=== PATIENT | male | born 1950 | race Caucasian/White ===

== ENCOUNTER → 2016-04-23 | Outpatient (REF) | payer MEDICARE, MEDICAID ==
[~2016-04-23] MED LIST: *BLDWK6; ASPI81TA63; CEFTIN500 PO; DRYSOL TOPICAL; FLEXERIL10 PO; LIPI20TA; LIPITOR10 PO; LIPITOR20 PO; LIPITOR40 PO; LIPITOR80 PO; LODINE500 PO; MOTRIN400 PO; VYTORIN80 PO; XOPE1.252; ZETIA PO; [UNRECOGNIZED DRUG - CODE] PO
[2016-04-23 16:08] LABS: BASO % 0.5 % (0.0-1.0); EOS # 0.2 K/mm3 (0.0-0.50); EOS % 2.5 % (0.0-3.0); LARGE UNSTAINED CELL # 0.1 K/mm3 (0.0-0.4); LYMPH # 1.4 K/mm3 (1.5-4.5); LYMPH % 23.4 % (24.0-44.0); MEAN CORPUSCULAR HEMOGLOBIN 28.8 pg (27.0-33.0); MEAN CORPUSCULAR HGB CONC 32.9 g/dl (32.0-36.5); MEAN CORPUSCULAR VOLUME 87.6 fl (80.0-96.0); MONO # 0.5 K/mm3 (0.0-0.8); MONO % 7.9 % (0.0-5.0); NEUTROPHILS # 3.8 K/mm3 (1.8-7.7); NEUTROPHILS % 63.7 % (36.0-66.0); PLATELET COUNT, AUTOMATED 312 k/mm3 (150-450); RED CELL DISTRIBUTION WIDTH 12.8 % (11.5-14.5); WHITE BLOOD COUNT 5.9 K/mm3 (4.0-10.0)
[2016-04-23 16:11] LABS: ALBUMIN 3.8 GM/DL (3.2-5.2); ALBUMIN/GLOBULIN RATIO 1.19 (1.00-1.93); ALKALINE PHOSPHATASE 95 U/L (45-117); ALT/SGPT 23 U/L (12-78); ANION GAP 6 MEQ/L (8-16); AST/SGOT 11 U/L (15-37); BILIRUBIN,TOTAL 0.3 MG/DL (0.2-1.0); BLOOD UREA NITROGEN 14 MG/DL (7-18); CALCIUM LEVEL 9.2 MG/DL (8.8-10.2); CARBON DIOXIDE LEVEL 30 MEQ/L (21-32); CHLORIDE LEVEL 106 MEQ/L (98-107); CHOLESTEROL LEVEL 277 MG/DL (<200); CREATININE FOR GFR 0.96 MG/DL (0.70-1.30); GLOMERULAR FILTRATION RATE > 60.0 (>49); GLUCOSE, FASTING 89 MG/DL (80-110); POTASSIUM SERUM 4.8 MEQ/L (3.5-5.1); SODIUM LEVEL 142 MEQ/L (136-145); TRIGLYCERIDES LEVEL 129 MG/DL (<150)
== END ==
LOC: M SFHCPLAZ 11:18
PROVIDERS: ATTEND Family Medicine
DX: E78.5 Hyperlipidemia, unspecified (principal); M17.0 Bilateral primary osteoarthritis of knee; R73.01 Impaired fasting glucose
CPT/HCPCS: 36415; 80053; 80061; 82550; 83036; 85025; 86140; 90662; G0008; G0463

== ENCOUNTER → 2016-06-09 | Outpatient (REF) | payer MEDICARE, MEDICAID ==
[2016-06-09 11:31] LABS: ALBUMIN 3.6 GM/DL (3.2-5.2); ALBUMIN/GLOBULIN RATIO 1.2 (1.00-1.93); BILIRUBIN,DIRECT 0.1 MG/DL (0.0-0.2); BILIRUBIN,TOTAL 0.4 MG/DL (0.2-1.0); TOTAL PROTEIN 6.6 GM/DL (6.4-8.2)
== END ==
LOC: M SFHCPLAZ 09:36
PROVIDERS: ATTEND Physician Assistant Medical
DX: E78.5 Hyperlipidemia, unspecified (principal)

== ENCOUNTER → 2016-07-08 | Outpatient (CLI) | payer MEDICARE, MEDICAID ==
[2016-07-08 10:28] LABS: BLOOD UREA NITROGEN 22 MG/DL (7-18); CREATININE FOR GFR 0.92 MG/DL (0.70-1.30); GLOMERULAR FILTRATION RATE > 60.0 (>49)
== END ==
LOC: M LAB 09:30
PROVIDERS: ATTEND Surgery
DX: R10.31 Right lower quadrant pain (principal)

== ENCOUNTER → 2016-07-14 | Outpatient (CLI) | payer MEDICARE, MEDICAID ==
[~2016-07-14] MED LIST changes: +GASTROGRAFIN SOLUTION 30ML (Q9963) As Ordered ONE; +ISOVUE-370 76% 100ML VIAL (Q9967) As Ordered ONE
--- NOTE | 2016-07-14 17:28 | REP ---
CT PELVIS WITH CONTRAST: REASON: Groin pain. COMPARISON: 12/04/2015 CONTRAST UTILIZED 100 mL Isovue-370. The bowel loops and their mesenteries are within normal limits. There is no free fluid or free air. There is no pelvic mass or adenopathy. The inguinal regions are normal. The previously reported bilateral inguinal hernias are no longer present. Bone window technique throughout the exam shows the osseous structures to be stable and intact. Spinal degenerative changes are present and there is bilateral L5- spondylolysis status quo. IMPRESSION: CT findings are within normal limits as described above. Signed by Jacques Davis DO 07/19/2016 02:51 P
== END ==
LOC: M RAD 14:52
PROVIDERS: ATTEND Surgery
DX: R10.31 Right lower quadrant pain (principal)
CPT/HCPCS: 72193; Q9963; Q9967

== ENCOUNTER → 2016-09-10 | Outpatient (REF) | payer MEDICARE, MEDICAID ==
[~2016-09-10] MED LIST changes: -GASTROGRAFIN SOLUTION 30ML (Q9963) As Ordered ONE; -ISOVUE-370 76% 100ML VIAL (Q9967) As Ordered ONE
[2016-09-10 13:08] LABS: ALBUMIN 4.3 GM/DL (3.2-5.2); ALBUMIN/GLOBULIN RATIO 1.26 (1.00-1.93); ALKALINE PHOSPHATASE 93 U/L (45-117); ALT/SGPT 21 U/L (12-78); ANION GAP 9 MEQ/L (8-16); AST/SGOT 14 U/L (15-37); BILIRUBIN,TOTAL 0.5 MG/DL (0.2-1.0); BLOOD UREA NITROGEN 13 MG/DL (7-18); CALCIUM LEVEL 9.5 MG/DL (8.8-10.2); CARBON DIOXIDE LEVEL 25 MEQ/L (21-32); CHLORIDE LEVEL 103 MEQ/L (98-107); CREATININE FOR GFR 0.97 MG/DL (0.70-1.30); GLOMERULAR FILTRATION RATE > 60.0 (>49); GLUCOSE, FASTING 87 MG/DL (80-110); POTASSIUM SERUM 4.4 MEQ/L (3.5-5.1); SODIUM LEVEL 137 MEQ/L (136-145); TOTAL PROTEIN 7.7 GM/DL (6.4-8.2)
[2016-09-10 13:22] LABS: VITAMIN B12 LEVEL 509 PG/ML (247-911)
[2016-09-14 12:40] LABS: PRETREATED FOLATE FOR RBCFOL 9.6 NG/ML
== END ==
LOC: M SFHCPLAZ 10:15
PROVIDERS: ATTEND Family Medicine
DX: N18.2 Chronic kidney disease, stage 2 (mild) (principal); R73.01 Impaired fasting glucose; E53.8 Deficiency of other specified B group vitamins; Z12.5 Encounter for screening for malignant neoplasm of prostate
CPT/HCPCS: 80053; 82607; 82747; 83036; 90670; G0009; G0103; G0463

== ENCOUNTER → 2016-11-17 | Outpatient (CLI) | payer MEDICARE, MEDICAID ==
--- NOTE | 2016-11-17 09:32 | REP ---
Low-dose lung screening CT of the chest without IV contrast: Comparison is the chest CT with IV contrast dated 09/23/2008. There is a 6 mm right upper lobe lung nodule on image 50. Upon re measuring in this nodule on the prior study it also measure 6 mm previously and is stable and unchanged. Given the 8-year time frame from the prior study, this is a stable nodule, likely a granuloma. No additional evaluation is required. There are no other lung nodules or masses. There are no infiltrates or effusions. Impression: A category II low-dose screening lung CT. Recommend annual low-dose chest screening CT. Signed by Mihir Brown MD 11/17/2016 09:24 A
== END ==
LOC: M RAD 08:44
PROVIDERS: ATTEND Family Medicine
DX: Z12.2 Encounter for screening for malignant neoplasm of respiratory organs (principal); F17.210 Nicotine dependence, cigarettes, uncomplicated

== ENCOUNTER → 2017-01-14 | Outpatient (REF) | payer MEDICARE, MEDICAID ==
[2017-01-14 13:54] LABS: BASO % 0.5 % (0.0-1.0); EOS # 0.2 10^3/uL (0.0-0.50); EOS % 3.1 % (0.0-3.0); IMMATURE GRANULOCYTE % 0.3 % (0-0); LYMPH # 1.6 10^3/uL (1.5-4.5); LYMPH % 27.5 % (24.0-44.0); MEAN CORPUSCULAR HEMOGLOBIN 28.7 pg (27.0-33.0); MEAN CORPUSCULAR HGB CONC 32.4 g/dl (32.0-36.5); MEAN CORPUSCULAR VOLUME 88.4 fl (80.0-96.0); MONO # 0.5 10^3/uL (0.0-0.8); NEUTROPHILS # 3.5 10^3/uL (1.8-7.7); NEUTROPHILS % 59.6 % (36.0-66.0); PLATELET COUNT, AUTOMATED 338 10^3/uL (150-450); RED CELL DISTRIBUTION WIDTH 13.2 % (11.5-14.5); WHITE BLOOD COUNT 5.9 10^3/uL (4.0-10.0)
[2017-01-14 15:04] LABS: ALBUMIN 4.1 GM/DL (3.2-5.2); ALBUMIN/GLOBULIN RATIO 1.21 (1.00-1.93); ALKALINE PHOSPHATASE 93 U/L (45-117); ALT/SGPT 21 U/L (12-78); ANION GAP 5 MEQ/L (8-16); AST/SGOT 14 U/L (15-37); BILIRUBIN,TOTAL 0.5 MG/DL (0.2-1.0); BLOOD UREA NITROGEN 11 MG/DL (7-18); CALCIUM LEVEL 9.2 MG/DL (8.8-10.2); CARBON DIOXIDE LEVEL 31 MEQ/L (21-32); CHLORIDE LEVEL 104 MEQ/L (98-107); CHOLESTEROL LEVEL 275 MG/DL (<200); CREATININE FOR GFR 0.94 MG/DL (0.70-1.30); FREE T4 1.12 NG/DL (0.76-1.46); GLOMERULAR FILTRATION RATE > 60.0 (>49); GLUCOSE, FASTING 83 MG/DL (80-110); POTASSIUM SERUM 4.4 MEQ/L (3.5-5.1); SODIUM LEVEL 140 MEQ/L (136-145); TOTAL PROTEIN 7.5 GM/DL (6.4-8.2); TRIGLYCERIDES LEVEL 83 MG/DL (<150)
== END ==
LOC: M SFHCPLAZ 11:46
PROVIDERS: ATTEND Family Medicine
DX: E78.5 Hyperlipidemia, unspecified (principal); K21.9 Gastro-esophageal reflux disease without esophagitis; E53.8 Deficiency of other specified B group vitamins; Z23 Encounter for immunization; R73.01 Impaired fasting glucose; F17.200 Nicotine dependence, unspecified, uncomplicated; K40.90 Unilateral inguinal hernia, without obstruction or gangrene, not specified as recurrent; M17.0 Bilateral primary osteoarthritis of knee; J32.9 Chronic sinusitis, unspecified; M18.2 Bilateral post-traumatic osteoarthritis of first carpometacarpal joints; Z79.82 Long term (current) use of aspirin; Z79.899 Other long term (current) drug therapy
CPT/HCPCS: 80053; 80061; 82306; 82550; 83970; 84439; 84443; 85025; 86140; 90471; 90662; G0463

== ENCOUNTER → 2017-05-19 | Outpatient (REF) | payer MEDICARE, MEDICAID ==
[2017-05-19 13:12] LABS: ALBUMIN 3.8 GM/DL (3.2-5.2); ALBUMIN/GLOBULIN RATIO 1.27 (1.00-1.93); ALKALINE PHOSPHATASE 85 U/L (45-117); ALT/SGPT 20 U/L (12-78); ANION GAP 7 MEQ/L (8-16); AST/SGOT 17 U/L (7-37); BILIRUBIN,TOTAL 0.4 MG/DL (0.2-1.0); BLOOD UREA NITROGEN 16 MG/DL (7-18); C REACTIVE PROTEIN QUANTITATIV < 0.30 MG/DL (0.00-0.30); CALCIUM LEVEL 8.9 MG/DL (8.8-10.2); CARBON DIOXIDE LEVEL 26 MEQ/L (21-32); CHLORIDE LEVEL 107 MEQ/L (98-107); CHOLESTEROL LEVEL 202 MG/DL (<200); CHOLESTEROL RISK RATIO 3.811 (<5); CREATININE FOR GFR 1.08 MG/DL (0.70-1.30); GLOMERULAR FILTRATION RATE > 60.0 (>49); GLUCOSE, FASTING 109 MG/DL (70-100); HDL CHOLESTEROL 53 MG/DL (>40); LDL CHOLESTEROL 120.4 MG/DL (<100); MAGNESIUM LEVEL 2.1 MG/DL (1.8-2.4); NON-HDL-C 149 MG/DL; POTASSIUM SERUM 4.4 MEQ/L (3.5-5.1); PSA SCREENING 0.74 NG/ML (< 4.0); SODIUM LEVEL 140 MEQ/L (136-145); TOTAL PROTEIN 6.8 GM/DL (6.4-8.2); TRIGLYCERIDES LEVEL 143 MG/DL (<150)
== END ==
LOC: M SFHCPLAZ 08:49
DX: N18.2 Chronic kidney disease, stage 2 (mild) (principal); E78.5 Hyperlipidemia, unspecified; Z12.5 Encounter for screening for malignant neoplasm of prostate
CPT/HCPCS: 83735

== ENCOUNTER → 2017-06-29 | Outpatient (CLI) | payer MEDICARE, MEDICAID ==
[2017-06-29 13:56] LABS: ANION GAP 6 MEQ/L (8-16); AST/SGOT 12 U/L (7-37); BLOOD UREA NITROGEN 11 MG/DL (7-18); CALCIUM LEVEL 8.8 MG/DL (8.8-10.2); CARBON DIOXIDE LEVEL 26 MEQ/L (21-32); CHLORIDE LEVEL 108 MEQ/L (98-107); CREATININE FOR GFR 0.98 MG/DL (0.70-1.30); GLOMERULAR FILTRATION RATE > 60.0 (>49); GLUCOSE, FASTING 97 MG/DL (70-100); POTASSIUM SERUM 4.1 MEQ/L (3.5-5.1); SODIUM LEVEL 140 MEQ/L (136-145)
[2017-06-29 13:57] LABS: ALBUMIN 3.8 GM/DL (3.2-5.2); ALBUMIN/GLOBULIN RATIO 1.19 (1.00-1.93); ALKALINE PHOSPHATASE 91 U/L (45-117); ALT/SGPT 18 U/L (12-78); BILIRUBIN,TOTAL 0.5 MG/DL (0.2-1.0); CHOLESTEROL LEVEL 267 MG/DL (<200); CHOLESTEROL RISK RATIO 4.377 (<5); HDL CHOLESTEROL 61 MG/DL (>40); LDL CHOLESTEROL 184.6 MG/DL (<100); MAGNESIUM LEVEL 2.1 MG/DL (1.8-2.4); NON-HDL-C 206 MG/DL; PSA SCREENING 0.75 NG/ML (< 4.0); TRIGLYCERIDES LEVEL 107 MG/DL (<150)
== END ==
LOC: M LAB 12:59
DX: N18.2 Chronic kidney disease, stage 2 (mild) (principal); E78.5 Hyperlipidemia, unspecified; Z12.5 Encounter for screening for malignant neoplasm of prostate
CPT/HCPCS: 83735

== ENCOUNTER → 2017-10-18 | Outpatient (REF) | payer MEDICARE, MEDICAID ==
[2017-10-18 10:43] LABS: BASO % 0.6 % (0.0-1.0); EOS # 0.3 10^3/uL (0.0-0.50); HEMATOCRIT 39.8 % (42.0-52.0); IMMATURE GRANULOCYTE % 0.5 % (0-3.0); LYMPH # 1.5 10^3/uL (1.5-4.5); LYMPH % 24.8 % (24.0-44.0); MEAN CORPUSCULAR HEMOGLOBIN 28.4 pg (27.0-33.0); MEAN CORPUSCULAR HGB CONC 32.7 g/dl (32.0-36.5); MEAN CORPUSCULAR VOLUME 87.1 fl (80.0-96.0); MONO # 0.7 10^3/uL (0.0-0.8); MONO % 11.3 % (0.0-5.0); NEUTROPHILS # 3.6 10^3/uL (1.8-7.7); NEUTROPHILS % 57.8 % (36.0-66.0); PLATELET COUNT, AUTOMATED 274 10^3/uL (150-450); RED BLOOD COUNT 4.57 10^6/uL (4.30-6.10); RED CELL DISTRIBUTION WIDTH 12.9 % (11.5-14.5); WHITE BLOOD COUNT 6.2 10^3/uL (4.0-10.0)
[2017-10-18 10:51] LABS: APPEARANCE, URINE CLOUDY (CLEAR); BACTERIA, URINE AUTO NEGATIVE (NEGATIVE); BILIRUBIN, URINE AUTO 1+ (NEGATIVE); BLOOD, URINE BLOOD NEGATIVE (NEGATIVE); CALCIUM OXALATE CRYSTALS MODERATE; COLOR, URINE YELLOW (YELLOW); GLUCOSE, URINE (UA) AUTO NEGATIVE (NEGATIVE); KETONE, URINE AUTO NEGATIVE (NEGATIVE); LEUKOCYTE ESTERASE, URINE AUTO NEGATIVE (NEGATIVE); MUCUS, URINE MODERATE (NEGATIVE); NITRITE, URINE AUTO NEGATIVE (NEGATIVE); PROTEIN, URINE AUTO NEGATIVE (NEGATIVE); RBC, URINE AUTO 2 /HPF (0-3); SQUAMOUS EPITHELIAL CELL UR AU 1 /HPF (0-6); WBC, URINE AUTO 2 /HPF (0-3)
[2017-10-18 10:54] LABS: HEMATOCRIT 39.8 % (42.0-52.0)
[2017-10-18 11:17] LABS: ALBUMIN 3.6 GM/DL (3.2-5.2); ALKALINE PHOSPHATASE 83 U/L (45-117); ALT/SGPT 23 U/L (12-78); ANION GAP 7 MEQ/L (8-16); AST/SGOT 16 U/L (7-37); BILIRUBIN,TOTAL 0.3 MG/DL (0.2-1.0); BLOOD UREA NITROGEN 18 MG/DL (7-18); CALCIUM LEVEL 8.6 MG/DL (8.8-10.2); CARBON DIOXIDE LEVEL 27 MEQ/L (21-32); CHLORIDE LEVEL 107 MEQ/L (98-107); CREATININE FOR GFR 0.94 MG/DL (0.70-1.30); GLOMERULAR FILTRATION RATE > 60.0 (>49); GLUCOSE, FASTING 92 MG/DL (70-100); POTASSIUM SERUM 4.5 MEQ/L (3.5-5.1); SODIUM LEVEL 141 MEQ/L (136-145); TOTAL PROTEIN 6.6 GM/DL (6.4-8.2)
[2017-10-18 11:23] LABS: VITAMIN B12 LEVEL 371 PG/ML (247-911)
[2017-10-18 11:31] LABS: ESTIMATED AVERAGE GLUCOSE 120 MG/DL (60-110); HEMOGLOBIN A1c 5.8 %
[2017-10-18 11:32] LABS: MALB URINE SIEMENS 21.9 MG/L; MAU/CREAT RATIO 5.3 MCG/MG (0.0-30.0)
[2017-10-18 13:10] LABS: PRETREATED FOLATE FOR RBCFOL 14.4 NG/ML; RBC FOLATE 759.8 NG/ML (280-791)
== END ==
LOC: M SFHCPLAZ 08:31
DX: N18.2 Chronic kidney disease, stage 2 (mild) (principal); E53.8 Deficiency of other specified B group vitamins
CPT/HCPCS: 82607

== ENCOUNTER 2017-11-21 06:51 | Emergency (ER) | payer MEDICARE, MEDICAID ==
[2017-11-21] MEDS: METHOCARBAMOL 500 MG TAB PO (07:34)
== END 2017-11-21 07:43 | disposition home or self-care (01) ==
LOC: M ED 06:51
DX: S29.012A Strain of muscle and tendon of back wall of thorax, initial encounter (principal); S16.1XXA Strain of muscle, fascia and tendon at neck level, initial encounter; J44.9 Chronic obstructive pulmonary disease, unspecified; J45.909 Unspecified asthma, uncomplicated; E78.70 Disorder of bile acid and cholesterol metabolism, unspecified; F17.210 Nicotine dependence, cigarettes, uncomplicated; Z79.82 Long term (current) use of aspirin; Z79.899 Other long term (current) drug therapy
CPT/HCPCS: 99283

== ENCOUNTER → 2017-11-23 | Outpatient (CLI) | payer MEDICARE, MEDICAID | LOC: M RAD 10:48 | DX: M50.321 Other cervical disc degeneration at C4-C5 level (principal); M50.322 Other cervical disc degeneration at C5-C6 level; M47.812 Spondylosis without myelopathy or radiculopathy, cervical region | CPT/HCPCS: 72052 ==

== ENCOUNTER → 2018-02-17 | Outpatient (CLI) | payer MEDICARE, MEDICAID | LOC: M RAD 10:54 | DX: M47.22 Other spondylosis with radiculopathy, cervical region (principal); M50.21 Other cervical disc displacement, high cervical region; M50.221 Other cervical disc displacement at C4-C5 level; M50.222 Other cervical disc displacement at C5-C6 level; M50.223 Other cervical disc displacement at C6-C7 level; M50.23 Other cervical disc displacement, cervicothoracic region | CPT/HCPCS: 72141 ==

== ENCOUNTER 2018-08-25 07:46 | Day surgery (SDC) | payer MEDICARE, MEDICAID ==
[~2018-08-25] VITALS: Ht 170.2 cm; Wt 87.9 kg
[~2018-08-25 07:46] MED LIST changes: +ASPI81TA85 PO; +B COTAB3 PO; +CRES40TA PO; +ESOM1CAP5; +EZET10TA; +HYDR-3715 PO; +LIDOCAINE 1% MDV 20ML VIAL SQ PRN; +LOSA25TA14; +LR 1,000 ML IV ONE; +MELO15TA28; +METO10TA2; +METO10TA2 PO; +NEXI40CA PO; +ROBA500T PO; +ROSU40TA3; +TIZA2CAP PO; +ceFAZolin SOD 1 GM in D5W MINI-BAG PLUS 50 ML IV ONE
[2018-08-25 08:10] LABS: HEMATOCRIT 41.1 % (42.0-52.0); HEMOGLOBIN 13.3 g/dl (13.5-17.5); MEAN CORPUSCULAR HEMOGLOBIN 27.9 pg (27.0-33.0); MEAN CORPUSCULAR HGB CONC 32.4 g/dl (32.0-36.5); MEAN CORPUSCULAR VOLUME 86.2 fl (80.0-96.0); PLATELET COUNT, AUTOMATED 272 10^3/uL (150-450); RED BLOOD COUNT 4.77 10^6/uL (4.30-6.10); WHITE BLOOD COUNT 6.8 10^3/uL (4.0-10.0)
[2018-08-25] MEDS ORDERED: BUPIVACAINE/EPIN 0.25% 30 ML VIAL As Ordered ONE (09:59)
[2018-08-25] MEDS ORDERED: ONDANSETRON 4MG/2ML VIAL (J2405) As Ordered ONE (10:18)
[2018-08-25] MEDS ORDERED: PROPOFOL 200 MG/20 ML VIAL As Ordered ONE (10:18)
[2018-08-25] MEDS ORDERED: fentaNYL 250 MCG/5 ML INJECTION (J3010) As Ordered ONE (10:18)
[2018-08-25] MEDS ORDERED: LIDOCAINE 2% JELLY 6 ML SYRINGE As Ordered ONE (10:18)
[2018-08-25] MEDS ORDERED: ROCURONIUM BROMIDE 50 MG/5 ML VIAL As Ordered ONE ×2 (10:18→11:08)
[2018-08-25] MEDS ORDERED: MIDAZOLAM INJ 2 MG/2 ML VIAL (J2250) As Ordered ONE (10:18)
[2018-08-25] MEDS ORDERED: SUGAMMADEX SODIUM 500 MG/5 ML VIAL (BRIDION) As Ordered ONE (10:18)
[2018-08-25] MEDS ORDERED: LIDOCAINE 2% INJ 100 MG/5 ML SDV (FOR ANES.) As Ordered ONE (10:18)
[2018-08-25] MEDS ORDERED: METOCLOPRAMIDE INJ 10MG/2ML VIAL (J2765) As Ordered ONE (10:18)
[2018-08-25] MEDS ORDERED: dexameTHASONE 4 MG/ML 1ML VIAL (J1100) As Ordered ONE (10:18)
[2018-08-25] MEDS ORDERED: DESFLURANE 240 ML INHALANT As Ordered ONE (10:52)
[2018-08-25] MEDS ORDERED: ePHEDrine SULFATE 25 MG/5 ML(5MG/ML) SYRINGE As Ordered ONE (10:53)
[2018-08-25] MEDS ORDERED: ACETAMINOPHEN 1000MG 100ML IV BTL (OFIRMEV) (J0131 PER 10MG) As Ordered ONE (11:28)
[2018-08-25] MEDS ORDERED: KETOROLAC 60 MG/2 ML VIAL (J1885) As Ordered ONE (11:31)
--- NOTE | 2018-08-25 12:10 | RO ---
DATE OF PROCEDURE: 08/25/2018 PREOPERATIVE DIAGNOSIS: Left inguinal hernia. POSTOPERATIVE DIAGNOSIS: Left inguinal hernia (indirect). PROCEDURE: Robotic-assisted left inguinal hernia repair with ProGrip mesh. SURGEON: Lui Perry MD FIRE INVESTIGATION LIEUTENANT: ANESTHESIA: General endotracheal anesthesia ESTIMATED BLOOD LOSS: Minimal. FLUIDS: Crystalloid. BRIEF PROCEDURE SUMMARY: The patient was brought to the operating room, was given general anesthesia. After adequate anesthesia and preoperative antibiotics were given, the patient was prepped and draped in the usual sterile fashion. Next, a supraumbilical incision was made with skin knife. Blunt dissection was carried down to fascia. Veress needle placed into the abdominal cavity insufflated to 15 mm of pressure and a dilating 8 mm trocar was placed. Under direct visualization, two lateral 8 mm trocars were placed and the patient was placed in steep Trendelenburg. The robot was docked at this time, and the peritoneum was then taken down with monopolar cut scissors using blunt dissection. Initially to get into the plane, the patient had some adhesions from the previous TEP hernia repair on the right-hand side and these preperitoneal thickened adhesions were taken down with sharp dissection as well as electrocautery. Eventually, this was mobilized quite nicely and the lateral border of Vinnie's pubis was seen and then dissection was continued laterally. The peritoneum was taken down in this area as well as with blunt dissection, taken off the cord structures, taken off vas to where the vessels could be seen nicely diving deep. The ProGrip mesh was cut to the appropriate size and brought into the preperitoneal space, pressed into position. There was a little bit of a redundancy to it and thus, a small slit was made to have some overlapping mesh, but otherwise, peritoneum was closed over this in a running manner with V-Loc suture. All trocars were removed under direct visualization. #4-0 Vicryl was used to close all incisions. Steri-Strips and dry sterile dressing was applied. The patient was awakened, extubated, brought to recovery room awake, alert, hemodynamically stable. Sponge and needle counts correct times two.
[2018-08-25] MEDS ORDERED: LR 1,000 ML IV SCH ×2 (12:15)
[2018-08-25] MEDS ORDERED: fentaNYL 100 MCG/2 ML INJECTION (J3010) IV PRN (12:15)
[2018-08-25] MEDS ORDERED: NORCO, ANEXSIA 5/325MG TABLET (HYDROcodone/ACETAMINOPHEN) PO PRN (12:15)
[2018-08-25] MEDS ORDERED: ONDANSETRON 4MG/2ML VIAL (J2405) IV PRN ×2 (12:15)
[2018-08-25] MEDS: PERCOCET 5MG/325MG TAB PO PRN ×2 (12:20→12:25)
[2018-08-25 13:17] VITALS: BP 157/78
--- NOTE | 2018-08-25 18:44 | ECGEPIP ---
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
[2018-08-25] MEDS ORDERED: IBUPROFEN 600 MG TAB PO SCH (21:00)
== END 2018-08-25 13:28 | disposition home or self-care (01) ==
LOC: M SDC 07:46
PROVIDERS: ATTEND Surgery
DX: K40.90 Unilateral inguinal hernia, without obstruction or gangrene, not specified as recurrent (principal); I10 Essential (primary) hypertension; J44.9 Chronic obstructive pulmonary disease, unspecified; F17.210 Nicotine dependence, cigarettes, uncomplicated; E78.5 Hyperlipidemia, unspecified
CPT/HCPCS: 36415; 49650; 85027; 93005; C1781; J0131; J0690; J1100; J1885; J2250; J2405; J2765; J3010

== ENCOUNTER → 2019-04-26 | Outpatient (REF) | payer MEDICARE, MEDICAID ==
[~2019-04-26] MED LIST changes: -EZET10TA; +EZET10TA21; -LIDOCAINE 1% MDV 20ML VIAL SQ PRN; -LR 1,000 ML IV ONE; -ROSU40TA3; +ROSU40TA4; -ceFAZolin SOD 1 GM in D5W MINI-BAG PLUS 50 ML IV ONE
[2019-04-26 13:29] LABS: BASO # 0.1 10^3/uL (0.0-0.2); BASO % 0.7 % (0.0-1.0); EOS # 0.3 10^3/uL (0.0-0.5); HEMATOCRIT 47.5 % (42.0-52.0); HEMOGLOBIN 14.6 g/dl (13.5-17.5); LYMPH # 1.6 10^3/uL (1.5-5.0); LYMPH % 22.9 % (24.0-44.0); MEAN CORPUSCULAR HEMOGLOBIN 28.2 pg (27.0-33.0); MEAN CORPUSCULAR HGB CONC 30.7 g/dl (32.0-36.5); MEAN CORPUSCULAR VOLUME 91.7 fl (80.0-96.0); MONO # 0.7 10^3/uL (0.0-0.8); MONO % 10.8 % (0.0-5.0); NEUTROPHILS # 4.1 10^3/uL (1.5-8.5); PLATELET COUNT, AUTOMATED 321 10^3/uL (150-450); RED BLOOD COUNT 5.18 10^6/uL (4.30-6.10); WHITE BLOOD COUNT 6.8 10^3/uL (4.0-10.0)
[2019-04-26 14:09] LABS: ALBUMIN 4.2 GM/DL (3.2-5.2); ALT/SGPT 17 U/L (12-78); BILIRUBIN,TOTAL 0.5 MG/DL (0.2-1.0); BLOOD UREA NITROGEN 13 MG/DL (7-18); CALCIUM LEVEL 9.7 MG/DL (8.8-10.2); CARBON DIOXIDE LEVEL 28 MEQ/L (21-32); CHLORIDE LEVEL 104 MEQ/L (98-107); CHOLESTEROL LEVEL 305 MG/DL (<200); CHOLESTEROL RISK RATIO 5.258 (<5); CREATININE FOR GFR 1.13 MG/DL (0.70-1.30); FREE T4 1.15 NG/DL (0.76-1.46); GLOMERULAR FILTRATION RATE > 60.0 (>42); GLUCOSE, FASTING 85 MG/DL (70-100); HDL CHOLESTEROL 58 MG/DL (>40); LDL CHOLESTEROL 215 MG/DL (<100); NON-HDL-C 247 MG/DL; POTASSIUM SERUM 4.9 MEQ/L (3.5-5.1); PTH INTACT 62.8 PG/ML (18.5-88.0); SODIUM LEVEL 139 MEQ/L (136-145); TOTAL 25(OH) VITAMIN D 16.7 NG/ML (30.0-100.0); TOTAL PROTEIN 7.8 GM/DL (6.4-8.2); TRIGLYCERIDES LEVEL 159 MG/DL (<150); VITAMIN B12 LEVEL 357 PG/ML (247-911)
[2019-04-29 14:07] LABS: D001-IgE D pteronyssinus <0.10 kU/L (Class 0); E001-IgE Cat Epith/Dander < 0.10 kU/L (Class 0); E005-IgE Dog Dander < 0.10 kU/L (Class 0); G002-IgE Bermuda Grass < 0.10 kU/L (Class 0); G008-IgE Kentucky Bluegrass < 0.10 kU/L (Class 0); M001-IgE Penicillium chrysogen < 0.10 kU/L (Class 0); M002 IgE Cladosporium herbaru < 0.10 kU/L (Class 0); M003 IgE Aspergillus fumigatu < 0.10 kU/L (Class 0); M006-IgE Alternaria alternata < 0.10 kU/L (Class 0); T001-IgE Maple/Box Elder < 0.10 kU/L (Class 0); T003-IgE Common Silver Birch < 0.10 kU/L (Class 0); T006-IgE Cedar, Mountain < 0.10 kU/L (Class 0); T007-IgE Oak, White < 0.10 kU/L (Class 0); T008-IgE Elm, American < 0.10 kU/L (Class 0); T015-IgE Ash, White < 0.10 kU/L (Class 0); T041-IgE Hickory, White < 0.10 kU/L (Class 0); T070-IgE White Mulberry < 0.10 kU/L (Class 0); W001-IgE Ragweed, Short < 0.10 kU/L (Class 0); W009-IgE Plantain, English < 0.10 kU/L (Class 0); W014-IgE Pigweed, Rough < 0.10 kU/L (Class 0); W018-IgE Sheep Sorrel < 0.10 kU/L (Class 0)
== END ==
LOC: M SFHCPLAZ 11:51
PROVIDERS: ATTEND Family Medicine
DX: E53.8 Deficiency of other specified B group vitamins (principal); N18.2 Chronic kidney disease, stage 2 (mild); E78.5 Hyperlipidemia, unspecified; J30.89 Other allergic rhinitis; Z12.5 Encounter for screening for malignant neoplasm of prostate; Z79.899 Other long term (current) drug therapy
CPT/HCPCS: 36415; 80053; 80061; 82306; 82607; 83970; 84439; 84443; 85025; 85046; 86003; G0103; G0463

== ENCOUNTER → 2019-05-10 | Outpatient (CLI) | payer MEDICARE, MEDICAID ==
--- NOTE | 2019-05-10 08:13 | REP ---
Low-dose lung screening CT of the chest: The study is performed without IV contrast. The images are presented at lung windowing only. Comparisons are chest CTs dated 11/17/2016 and 08/06/2005. There is a 6 ml nodule in the right upper lobe on image 43, unchanged from both prior studies. There are no other lung nodules or masses. There are no infiltrates or pleural effusions. Impression: Stable right upper lobe lung nodule as described. Category II low-dose lung screening CT of the chest. The probability of malignancy is less than 1%. Depending on risk factors consider annual follow-up low-dose lung screening CT of the chest. Electronically Signed by Mihir Brown MD 05/10/2019 08:05 A
== END ==
LOC: M RAD 07:29
PROVIDERS: ATTEND Family Medicine
DX: Z12.2 Encounter for screening for malignant neoplasm of respiratory organs (principal); R91.1 Solitary pulmonary nodule; Z87.891 Personal history of nicotine dependence

== ENCOUNTER → 2019-05-11 | Outpatient (CLI) | payer MEDICARE, MEDICAID ==
--- NOTE | 2019-05-11 13:43 | REP ---
RIGHT WRIST, FOUR VIEWS: Four views of the right wrist performed. No acute fracture or dislocation is seen. There is mild diffuse chondrocalcinosis at the radiocarpal joint and proximal intercarpal joints. I see no other significant finding. IMPRESSION: Mild chondrocalcinosis. No other significant finding. Electronically Signed by Mihir Jensen MD 05/11/2019 03:33 P
== END ==
LOC: M RAD 11:33
PROVIDERS: ATTEND Physician Assistant Medical
DX: M11.231 Other chondrocalcinosis, right wrist (principal)

== ENCOUNTER → 2019-05-21 | Outpatient (REF) | payer MEDICARE, MEDICAID ==
[2019-05-21 16:04] LABS: ALBUMIN 4.3 GM/DL (3.2-5.2); ALT/SGPT 39 U/L (12-78); BILIRUBIN,TOTAL 0.4 MG/DL (0.2-1.0); BLOOD UREA NITROGEN 8 MG/DL (7-18); CALCIUM LEVEL 9.3 MG/DL (8.8-10.2); CARBON DIOXIDE LEVEL 30 MEQ/L (21-32); CHLORIDE LEVEL 103 MEQ/L (98-107); CHOLESTEROL LEVEL 166 MG/DL (<200); CHOLESTEROL RISK RATIO 2.634 (<5); CPK CREATINE PHOSPHOKINASE 178 U/L (39-308); GLOMERULAR FILTRATION RATE > 60.0 (>42); GLUCOSE, FASTING 83 MG/DL (70-100); HDL CHOLESTEROL 63 MG/DL (>40); LDL CHOLESTEROL 79 MG/DL (<100); NON-HDL-C 103 MG/DL; POTASSIUM SERUM 4.3 MEQ/L (3.5-5.1); SODIUM LEVEL 140 MEQ/L (136-145); TOTAL PROTEIN 7.4 GM/DL (6.4-8.2); TRIGLYCERIDES LEVEL 119 MG/DL (<150)
[2019-05-21 16:12] LABS: PTH INTACT 89.1 PG/ML (18.5-88.0); TOTAL 25(OH) VITAMIN D 14.8 NG/ML (30.0-100.0); VITAMIN B12 LEVEL 724 PG/ML (247-911)
[2019-05-21 17:20] LABS: HEMOGLOBIN A1c 6.2 %
[2019-05-22 11:30] LABS: ALBUMIN 4.48 GM/DL (3.29-5.55); ALBUMIN % 60.5 % (55.8-66.1); ALPHA-1-GLOBULIN % 5.2 % (2.9-4.9); ALPHA-1-GLOBULINS 0.38 GM/DL (0.17-0.41); ALPHA-2-GLOBULINS 0.84 GM/DL (0.42-0.99); ALPHA-2-GLOBULINS % 11.4 % (7.1-11.8); BETA-1-GLOBULINS 0.45 GM/DL (0.28-0.60); BETA-1-GLOBULINS % 6.1 % (4.7-7.2); BETA-2-GLOBULINS 0.36 GM/DL (0.19-0.55); BETA-2-GLOBULINS % 4.9 % (3.2-6.5); GAMMA GLOBULIN % 11.9 % (11.1-18.8); GAMMA GLOBULINS 0.88 GM/DL (0.65-1.58)
== END ==
LOC: M SFHCPLAZ 12:37
PROVIDERS: ATTEND Family Medicine
DX: E78.5 Hyperlipidemia, unspecified (principal); E55.9 Vitamin D deficiency, unspecified; R73.01 Impaired fasting glucose; E53.8 Deficiency of other specified B group vitamins
CPT/HCPCS: 20610; 36415; 80053; 80061; 82306; 82550; 82607; 83036; 83525; 83970; 84165; G0463; J3301

== ENCOUNTER → 2019-05-28 | Outpatient (CLI) | payer MEDICARE, MEDICAID ==
--- NOTE | 2019-05-28 14:15 | PFTRPT ---
Site: [facility], [address] [place], [address] ID: [id number] Name: ERICK MONTELONGO Visit Date: 05/28/2019 Second ID: [id number] Referring Doctor: MD Goldberg Ryan Reviewing Doctor: Tho Peters MD Behavioral Technician: Cintia SANDY RRT Age: 69 : 1950 Sex: Male Race: Height: 66.00 Inches Weight: 197.00 Lbs BSA: 1.99 Order IDs: [id number] Requested Test(s): <RESP-PFT.PFT B/A> Diagnosis: J44.9 test appear to be valid, although the ATS standard for "end of test" was not met. Pt was given four puffs of albuterol for postbronchodilator. Review Status: Not Reviewed Pre-Bronch Post-Bronch Pred Actual %Pred Actual %Chng SPIROMETRY FVC (L) 3.77 3.17 84 3.25 2 FEV1 (L) 2.76 2.06 74 2.18 5 FEV1/FVC (%) 74 65 87 67 2 FEF 25% (L/sec) 6.94 3.13 45 3.74 19 FEF 50% (L/sec) 4.40 1.56 35 1.76 12 FEF 75% (L/sec) 1.15 0.47 40 0.58 22 FEF 25-75% (L/sec) 2.10 1.15 54 1.36 18 FEF Max (L/sec) 7.47 5.25 70 4.76 -9 FIVC (L) 2.67 2.78 4 FIF 50% (L/sec) 4.46 3.27 73 4.45 35 FIF Max (L/sec) 3.31 4.55 37 MVV (L/min) 114 70 61 Expiratory Time (sec) 7.49 7.59 1 Back Extrap Vol (L) 0.06 0.17 175 Time To FEFmax (sec) 0.076 0.113 49 LUNG VOLUMES SVC (L) 3.99 3.29 82 IC (L) 2.97 2.17 73 ERV (L) 1.02 1.12 110 TGV (L) 3.25 4.98 153 RV (Pleth) (L) 2.23 3.86 173 TLC (Pleth) (L) 6.22 7.15 115 RV/TLC (Pleth) (%) 36 54 149 DIFFUSION DLCOunc (ml/min/mmHg) 24.43 22.09 90 DLCOcor (ml/min/mmHg) 24.43 23.21 95 DL/VA (ml/min/mmHg/L) 3.93 4.64 117 VA (L) 6.22 5.01 80 BHT (sec) 10.12 IVC (L) 3.12 TLC (SB) (L) 5.16 AIRWAYS RESISTANCE Raw (cmH2O/L/s) 1.45 1.39 96 Gaw (L/s/cmH2O) 1.03 0.75 73 sRaw (cmH2O*s) 4.76 7.76 162 sGaw (1/cmH2O*s) 0.20 0.13 66 BLOOD GASES Hgb (gm/dL) 13.0
== END ==
LOC: M CARPUL 12:53
PROVIDERS: ATTEND Family Medicine
DX: J44.9 Chronic obstructive pulmonary disease, unspecified (principal)

== ENCOUNTER → 2019-11-19 | Outpatient (REF) | payer MEDICARE, MEDICAID ==
[~2019-11-19] MED LIST changes: -ASPI81TA85 PO; +ASPI81TA86 PO
[2019-12-21 11:43] LABS: BASO % 0.4 % (0.0-1.0); EOS # 0.2 10^3/uL (0.0-0.5); EOS % 3.1 % (0.0-3.0); HEMATOCRIT 47.9 % (42.0-52.0); HEMOGLOBIN 15.1 g/dl (13.5-17.5); LYMPH # 1.9 10^3/uL (1.5-5.0); LYMPH % 27.5 % (24.0-44.0); MEAN CORPUSCULAR HEMOGLOBIN 28.7 pg (27.0-33.0); MEAN CORPUSCULAR HGB CONC 31.5 g/dl (32.0-36.5); MEAN CORPUSCULAR VOLUME 90.9 fl (80.0-96.0); MONO # 0.8 10^3/uL (0.0-0.8); MONO % 12.2 % (0.0-5.0); NEUTROPHILS # 3.8 10^3/uL (1.5-8.5); NEUTROPHILS % 56.2 % (36.0-66.0); PLATELET COUNT, AUTOMATED 307 10^3/uL (150-450); RED BLOOD COUNT 5.27 10^6/uL (4.30-6.10); WHITE BLOOD COUNT 6.8 10^3/uL (4.0-10.0)
[2020-01-02 16:42] LABS: ALBUMIN 4.2 GM/DL (3.2-5.2); ALT/SGPT 17 U/L (12-78); BILIRUBIN,TOTAL 0.2 MG/DL (0.2-1.0); BLOOD UREA NITROGEN 17 MG/DL (7-18); CALCIUM LEVEL 9.5 MG/DL (8.8-10.2); CARBON DIOXIDE LEVEL 29 MEQ/L (21-32); CHLORIDE LEVEL 105 MEQ/L (98-107); CHOLESTEROL LEVEL 240 MG/DL (<200); CHOLESTEROL RISK RATIO 4.067 (<5); CREATININE FOR GFR 1.13 MG/DL (0.70-1.30); GLOMERULAR FILTRATION RATE > 60.0 (>42); GLUCOSE, FASTING 88 MG/DL (70-100); HDL CHOLESTEROL 59 MG/DL (>40); LDL CHOLESTEROL 158 MG/DL (<100); NON-HDL-C 181 MG/DL; POTASSIUM SERUM 5.8 MEQ/L (3.5-5.1); SODIUM LEVEL 138 MEQ/L (136-145); THYROID STIMULATING HORMONE 0.829 uIU/ML (0.358-3.740); TOTAL PROTEIN 7.5 GM/DL (6.4-8.2); TRIGLYCERIDES LEVEL 113 MG/DL (<150)
[2020-01-02 16:43] LABS: HEMOGLOBIN A1c 5.7 %
== END ==
LOC: M SFHCPLAZ 13:13
PROVIDERS: ATTEND Physician Assistant Medical
DX: J44.9 Chronic obstructive pulmonary disease, unspecified (principal); I10 Essential (primary) hypertension; E78.00 Pure hypercholesterolemia, unspecified; Z79.899 Other long term (current) drug therapy

== ENCOUNTER → 2020-04-07 | Outpatient (REF) | payer MEDICARE, MEDICAID ==
[2020-04-07 17:32] LABS: ALBUMIN 3.9 GM/DL (3.2-5.2); ALT/SGPT 16 U/L (12-78); BILIRUBIN,TOTAL 0.4 MG/DL (0.2-1.0); BLOOD UREA NITROGEN 12 MG/DL (7-18); C REACTIVE PROTEIN QUANTITATIV 0.52 MG/DL (0.00-0.30); CALCIUM LEVEL 9.6 MG/DL (8.8-10.2); CARBON DIOXIDE LEVEL 31 MEQ/L (21-32); CHLORIDE LEVEL 104 MEQ/L (98-107); CHOLESTEROL LEVEL 256 MG/DL (<200); CHOLESTEROL RISK RATIO 4.413 (<5); GLOMERULAR FILTRATION RATE > 60.0 (>42); GLUCOSE, FASTING 76 MG/DL (70-100); HDL CHOLESTEROL 58 MG/DL (>40); LDL CHOLESTEROL 172 MG/DL (<100); NON-HDL-C 198 MG/DL; POTASSIUM SERUM 4.8 MEQ/L (3.5-5.1); SODIUM LEVEL 137 MEQ/L (136-145); TOTAL PROTEIN 7.4 GM/DL (6.4-8.2); TRIGLYCERIDES LEVEL 129 MG/DL (<150)
[2020-04-07 17:34] LABS: HEMOGLOBIN A1c 5.4 %
[2020-04-07 17:40] LABS: PTH INTACT 61.3 PG/ML (18.5-88.0); TOTAL 25(OH) VITAMIN D 12.1 NG/ML (30.0-100.0); VITAMIN B12 LEVEL 357 PG/ML (247-911)
== END ==
LOC: M SFHCPLAZ 15:57
PROVIDERS: ATTEND Family Medicine
DX: N18.2 Chronic kidney disease, stage 2 (mild) (principal); R73.01 Impaired fasting glucose; Z12.5 Encounter for screening for malignant neoplasm of prostate; E78.5 Hyperlipidemia, unspecified; M17.0 Bilateral primary osteoarthritis of knee; E53.8 Deficiency of other specified B group vitamins; Z79.899 Other long term (current) drug therapy; Z23 Encounter for immunization
CPT/HCPCS: 36415; 80053; 80061; 82306; 82607; 83036; 83970; 86140; 86677; 90682; G0008; G0103; G0463

== ENCOUNTER → 2020-06-09 | Outpatient (CLI) | payer MEDICARE, MEDICAID ==
--- NOTE | 2020-06-09 09:59 | REP ---
INDICATION: ENCOUNTER FOR SCREENING FOR LUNG CANCER. COMPARISON: 05/10/2019, 12/05/2017 TECHNIQUE: Low-dose lung CT screening protocol with 3 mm lung window slices presented. FINDINGS: On image 43 there is a 6 mm right upper lobe nodule that is stable. There is no parenchymal mass or acute infiltrate. There is cylindrical bronchiectatic change bilaterally. No calcified pleural plaque or pleural based mass is evident. There is no effusion or pneumothorax. Heart size is not enlarged. Few calcifications in the aortic arch and coronary arteries without aortic aneurysm. IMPRESSION: 1. Lung RADS category 2 benign, benign finding. Stable examination. No evidence of malignancy. Patients with this category of scan have less than 1% chance of malignancy at the time of the examination. For patients at high risk of lung malignancy, and annual low-dose screening CT is recommended. <Electronically signed by Bobby Padilla > 06/09/20 [id number]
== END ==
LOC: M RAD 08:25
PROVIDERS: ATTEND Family Medicine
DX: Z12.2 Encounter for screening for malignant neoplasm of respiratory organs (principal); R91.1 Solitary pulmonary nodule

== ENCOUNTER → 2020-09-11 | Outpatient (CLI) | payer MEDICARE, MEDICAID ==
[2020-09-11 10:32] LABS: ALBUMIN 3.5 GM/DL (3.2-5.2); ALT/SGPT 29 U/L (12-78); BILIRUBIN,TOTAL 0.4 MG/DL (0.2-1.0); BLOOD UREA NITROGEN 12 MG/DL (7-18); CALCIUM LEVEL 9.3 MG/DL (8.8-10.2); CARBON DIOXIDE LEVEL 28 MEQ/L (21-32); CHLORIDE LEVEL 107 MEQ/L (98-107); CHOLESTEROL LEVEL 123 MG/DL (<200); CPK CREATINE PHOSPHOKINASE 121 U/L (39-308); CREATININE FOR GFR 0.97 MG/DL (0.70-1.30); FREE T4 0.99 NG/DL (0.76-1.46); GLOMERULAR FILTRATION RATE > 60.0 (>42); GLUCOSE, FASTING 97 MG/DL (70-100); HDL CHOLESTEROL 50 MG/DL (>40); LDL CHOLESTEROL 57 MG/DL (<100); NON-HDL-C 73 MG/DL; POTASSIUM SERUM 4.6 MEQ/L (3.5-5.1); SODIUM LEVEL 139 MEQ/L (136-145); THYROID STIMULATING HORMONE 0.823 uIU/ML (0.358-3.740); TOTAL PROTEIN 6.7 GM/DL (6.4-8.2); TRIGLYCERIDES LEVEL 79 MG/DL (<150)
[2020-09-11 10:37] LABS: VITAMIN B12 LEVEL 1123 PG/ML (247-911)
[2020-09-11 10:39] LABS: HEMOGLOBIN A1c 5.8 %
== END ==
LOC: M LAB 09:30
PROVIDERS: ATTEND Family Medicine
DX: R73.01 Impaired fasting glucose (principal); I10 Essential (primary) hypertension; E53.8 Deficiency of other specified B group vitamins

== ENCOUNTER 2021-04-05 08:13 | Emergency (ER) | payer MEDICARE, MEDICAID ==
[~2021-04-05 08:13] MED LIST changes: +LOSA25TA13; -LOSA25TA14
[2021-04-05 08:32] VITALS: BP 144/78
[2021-04-05 09:34] LABS: BASO % 0.3 % (0.0-1.0); EOS # 0.1 10^3/uL (0.0-0.5); EOS % 0.5 % (0.0-3.0); HEMATOCRIT 42.7 % (42.0-52.0); HEMOGLOBIN 14.1 g/dl (13.5-17.5); LYMPH # 1.4 10^3/uL (1.5-5.0); LYMPH % 12.4 % (24.0-44.0); MEAN CORPUSCULAR HEMOGLOBIN 27.1 pg (27.0-33.0); MEAN CORPUSCULAR VOLUME 82.1 fl (80.0-96.0); MONO # 1.3 10^3/uL (0.0-0.8); MONO % 11.8 % (2.0-8.0); NEUTROPHILS # 8.3 10^3/uL (1.5-8.5); NEUTROPHILS % 74.7 % (36.0-66.0); PLATELET COUNT, AUTOMATED 272 10^3/uL (150-450); WHITE BLOOD COUNT 11.1 10^3/uL (4.0-10.0)
[2021-04-05] MEDS ORDERED: ACETAMINOPHEN 500 MG TAB PO ONE (09:40)
[2021-04-05 09:55] LABS: BLOOD UREA NITROGEN 18 MG/DL (7-18); C REACTIVE PROTEIN QUANTITATIV 0.93 MG/DL (0.00-0.30); CALCIUM LEVEL 9.2 MG/DL (8.8-10.2); CARBON DIOXIDE LEVEL 24 MEQ/L (21-32); CHLORIDE LEVEL 107 MEQ/L (98-107); CREATININE FOR GFR 1.02 MG/DL (0.70-1.30); GLOMERULAR FILTRATION RATE > 60.0 (>42); GLUCOSE, FASTING 109 MG/DL (70-100); POTASSIUM SERUM 4.4 MEQ/L (3.5-5.1); SODIUM LEVEL 138 MEQ/L (136-145); URIC ACID 5.7 MG/DL (3.5-7.2)
[2021-04-05 09:59] LABS: ERYTHROCYTE SEDIMENTATION RATE 21 mm/hr (0-20)
[2021-04-05] MEDS ORDERED: BACT800T5 PO (10:29)
[2021-04-05] MEDS ORDERED: GNP650TA8 PO (10:29)
[2021-04-05] MEDS ORDERED: BACTRIM 160MG/800MG DS TAB PO ONE (10:30)
[2021-04-06] MEDS ORDERED: EZET10TA21 PO (13:17)
[2021-04-06] MEDS ORDERED: BACTDSTA PO (13:17)
[2021-04-06] MEDS ORDERED: GABA-1171 PO (16:11)
[2021-04-06] MEDS ORDERED: LOSA25TA13 PO (16:11)
[2021-04-06] MEDS ORDERED: DEXI60CA2 PO (16:11)
[2021-04-06] MEDS ORDERED: ASPI81TA26 PO (16:57)
[2021-05-04] MEDS ORDERED: CEPH500C PO (20:11)
== END 2021-04-05 11:08 | disposition home or self-care (01) ==
LOC: M ED 08:13
DX: L03.114 Cellulitis of left upper limb (principal); I10 Essential (primary) hypertension; J44.9 Chronic obstructive pulmonary disease, unspecified; E78.5 Hyperlipidemia, unspecified; F17.200 Nicotine dependence, unspecified, uncomplicated

== ENCOUNTER 2021-04-06 12:58 | Inpatient (IN) | payer MEDICARE, MEDICAID ==
[~2021-04-06] VITALS: Ht 170.2 cm; Wt 87.5 kg
[~2021-04-06 12:58] MED LIST changes: +BACT800T5 PO; +GNP650TA8 PO; -LOSA25TA13; +LOSA25TA14
[2021-04-06] MEDS ORDERED: EZET10TA21 PO (13:17)
[2021-04-06] MEDS ORDERED: BACTDSTA PO (13:17)
[2021-04-06] MEDS ORDERED: MOM 30ML SUSPENSION UDC PO PRN (15:30)
[2021-04-06] MEDS ORDERED: MAALOX 30 ML SUSP *UDC PO PRN (15:30)
[2021-04-06] MEDS ORDERED: VANCOMYCIN HCL 1,000 MG, VIAL MATE ADAPTER 1 EACH in NS 250 ML IV SCH (15:30)
[2021-04-06 15:33] LABS: BASO % 0.3 % (0.0-1.0); EOS # 0.1 10^3/uL (0.0-0.5); EOS % 0.5 % (0.0-3.0); LYMPH % 20.1 % (24.0-44.0); MONO # 1.4 10^3/uL (0.0-0.8); MONO % 14.1 % (2.0-8.0); NEUTROPHILS # 6.3 10^3/uL (1.5-8.5); NEUTROPHILS % 64.6 % (36.0-66.0); WHITE BLOOD COUNT 9.8 10^3/uL (4.0-10.0)
[2021-04-06 15:59] LABS: BLOOD UREA NITROGEN 16 MG/DL (7-18); C REACTIVE PROTEIN QUANTITATIV 6.64 MG/DL (0.00-0.30); CREATININE FOR GFR 1.17 MG/DL (0.70-1.30); GLOMERULAR FILTRATION RATE > 60.0 (>42)
[2021-04-06] MEDS ORDERED: LOSA25TA14 PO (16:11)
[2021-04-06] MEDS ORDERED: GABA-1171 PO (16:11)
[2021-04-06] MEDS ORDERED: DEXI60CA2 PO (16:11)
[2021-04-06 16:15] LABS: RSV AMPLIFICATION NEGATIVE (NEGATIVE)
--- NOTE | 2021-04-06 16:15 | HPEPDOC ---
[facility] Medical History & Physical Date of Admission Apr 06, 2021 Date of Service: Apr 06, 2021 Primary Care Physician: Trenton Goldberg M.D. Other Provider Dillan Wood MD, orthopedic surgery Attending Physician: RABIA HYATT DO History and Physical CHIEF COMPLAINT: Left hand/wrist swelling HISTORY OF PRESENT ILLNESS: Patient is a 71-year-old male who presented to the emergency department with a 1 day history of left hand/wrist swelling. Patient states he came to the emergency department yesterday and was discharged after being diagnosed with cellulitis overlying the left wrist and left hand. Patient was supposed to see orthopedic surgery in the office today however, the swelling had become worse and the patient decided come back to the emergency department. Patient says he woke up like this on Tuesday morning, 04/05/2021. Patient denies any injury to the area or any known trauma. Patient does not have any cuts or overlying injuries to the area. Patient is having difficulty moving his wrist due to pain secondary to the swelling in the skin. Patient does not have any numbness or tingling distal to the swelling. The swelling is all on the dorsal aspect of the hand. Patient denies having any fevers or chills. Patient does not have any other symptoms at this time. PAST MEDICAL HISTORY: 1. Allergic rhinitis. 2. Lumbar degenerative joint disease. 3. Tinea pedis. 4. Vitamin B12 deficiency 5. Hyperlipidemia 6. Impaired fasting glucose 7. GERD 8. COPD Gold 2 as of May 2019. 9. CKD stage II 10. Mild fatty liver PAST SURGICAL HISTORY: 1. Colonoscopy/EGD. 2. Septoplasty. 3. Right inguinal hernia repair. SOCIAL HISTORY: Patient is in a current every day smoker but denies alcohol or illicit drug use. FAMILY HISTORY: Father: of liver cancer Mother: of cancer Siblings: Brother with unknown cancer who was . ALLERGIES: Please see below. REVIEW OF SYSTEMS: General: Patient denies fevers HEENT: Patient denies headaches Cardiovascular: Patient denies chest pain Respiratory: Patient denies shortness of breath, cough GI: Patient denies abdominal pain, nausea, vomiting, diarrhea : Patient denies increased frequency or pain with urination Extremities: Patient denies swelling or pain in extremities Neurological: Patient denies numbness or tingling in legs Skin: Patient denies any new rashes or lesions. Hematologic: Patient denies any easy bruising. Lymphatic: Patient denies any lumps lumps or bumps in neck, axilla, or groin HOME MEDICATIONS: Please see below. PHYSICAL EXAMINATION: VITAL SIGNS: Temperature 98.0, pulse 68, respiratory rate 18, blood pressure 149/81, pulse oximetry 97% on room air. General: Alert and oriented male patient who was sitting in the bedside chair when I walked in. Patient not appear to be in acute distress. HEENT: Normocephalic, atraumatic, moist mucous membranes. Neck: No lymphadenopathy or thyromegaly Cardiac: Regular rate and rhythm, no murmurs, normal S1, normal S2 Pulm: Clear to auscultation bilaterally. No wheezes, rhonchi, rales Abd: Nondistended, nontender to palpation, normal bowel sounds Ext: No edema bilateral lower extremities. Patient had swelling with erythema and warmth coming from the dorsal aspect of the left wrist extending into the left hand but not extending into the fingers. Patient is neurovascularly intact distal to the swelling on both the dorsal and palmar aspect of the left hand and all fingers and thumb Neuro: Patient was able to move all 4 extremities on command and reported equal sensation light touch in all 4 extremities. Skin: Skin of the head, neck, upper and lower extremities was examined did not show any evidence of rash or wounds. LABORATORY DATA: See below. IMAGING: Chest x-ray and MRI have been ordered and are pending at the time of this dictation MICROBIOLOGY: Please see below. ASSESSMENT: 71-year-old male presents to the hospital with cellulitis overlying the left wrist and hand who failed outpatient treatment . PLAN: 1. Cellulitis overlying the left wrist and hand. Patient failed outpatient treatment. Patient presented to the emergency department yesterday, 04/05/2021 and was sent home on Bactrim. Patient presented back today as the swelling was getting worse. Patient will be started on IV vancomycin. Orthopedic surgery has seen the patient and does not think this is a septic joint but has ordered MRI to rule this out. Patient will receive MRI. We will start the patient on vancomycin at this time. Orthopedic consult has been placed as the patient has already been seen by orthopedic surgery. 2. Hypertension. We will continue the patient's home blood pressure medications. 3. Hyperlipidemia. We will continue rosuvastatin. 4. GERD. Continue patient's home medications. DVT prophylaxis: Teds and sequentials for now CODE STATUS: DNR/DNI. Patient understands that if his heart were to stop beating and we do not attempt resuscitation that he would . Patient also says he does not want to be hooked up to a breathing machine. Patient will be a DNR/DNI. Disposition: Patient be admitted to medical surgical floor. Patient will most l ikely be discharged after greater than equal to 2 midnight stay Vital Signs Vital Signs Date Time Temp Pulse Resp B/P (MAP) Pulse Ox O2 Delivery O2 Flow Rate FiO2 04/06/21 12:58 98.0 68 18 149/81 (103) 97 Room Air Laboratory Data Labs 24H Laboratory Tests 2 04/06/21 15:13: 04/06/21 15:19: Immature Granulocyte % (Auto) 0.4, Neutrophils (%) (Auto) 64.6, Lymphocytes (%) (Auto) 20.1L, Monocytes (%) (Auto) 14.1H, Eosinophils (%) (Auto) 0.5, Basophils (%) (Auto) 0.3, Neutrophils # (Auto) 6.3, Lymphocytes # (Auto) 2.0, Monocytes # (Auto) 1.4H, Eosinophils # (Auto) 0.1, Basophils # (Auto) 0.0, Immature Granulocyte # (Auto) 0.0, Nucleated Red Blood Cells % (auto) 0.0, Glomerular Filtration Rate > 60.0, C-Reactive Protein, Quantitative 6.64H CBC/BMP Laboratory Tests 04/06/21 15:19 Home Medications Scheduled Aspirin (Aspir 81) 81 Mg Tablet.dr, 81 MG PO DAILY Esomeprazole Magnesium (Nexium) 40 Mg Capsule.dr, 40 MG PO BID Meloxicam (Meloxicam) 15 Mg Tab, DAILY Metoclopramide HCl (Metoclopramide HCl) 10 Mg Tablet, 10 MG PO QID Rosuvastatin Calcium (Crestor) 40 Mg Tablet, 40 MG PO DAILY Tizanidine HCl (Tizanidine HCl) 2 Mg Capsule, 2 MG PO Q8HP Vitamin B Complex (Vitamin B Complex) 1 Each Tablet, 1 TAB PO DAILY Scheduled PRN Acetaminophen (8 Hour) 650 Mg Tablet.er, 650 MG PO Q6HP PRN for pain Miscellaneous Medications Ezetimibe (Ezetimibe) 10 Mg Tablet Sulfamethoxazole/Trimethoprim (Sulfamethoxazole-Tmp Ds Tablet) 1 Each Tablet Allergies Coded Allergies: No Known Allergies (Unverified , 08/25/18) A-FIB/CHADSVASC A-FIB History Current/History of A-Fib/PAF?: No RABIA HYATT DO Apr 06, 2021 16:15
--- NOTE | 2021-04-06 16:25 | CR ---
CONSULTATION DATE: 04/06/2021 CHIEF COMPLAINT: Left wrist swelling and infection. HISTORY OF PRESENT ILLNESS: This 71-year-old presents with a little over 24 hours history of left hand and wrist area pain, swelling and warmth, no drainage, atraumatic, no history of any sort of trauma or injury there. He denies fevers, chills, night sweats, flu-like illnesses, early constitutional symptoms and no other hot, swollen or painful joints. He is right hand dominant. PAST MEDICAL HISTORY: Includes COPD and hypertension. He does not state any other past medical history, denies diabetes. MEDICATIONS: In the chart include acetaminophen, aspirin, Nexium, zonisamide, meloxicam, metoclopramide, rosuvastatin, tizanidine, Bactrim, vitamin B complex. ALLERGIES: No known drug allergies. SOCIAL HISTORY: He is a two pack a day smoker. 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 He denies drug or alcohol abuse. He lives in a [facility] in [place]. PHYSICAL EXAMINATION: He is a well appearing, nontoxic, 71-year-old man. His vital signs today: Temperature 98.0, blood pressure 149/91, 97% on room air. Pulse rate 68. Examination of the bilateral upper extremities reveal moderate hand swelling especially on the dorsum and somewhat throughout the hand diffusely. There is redness and warmth there, no drainage. This extends slightly towards the wrist area but not up into the forearm. The forearm compartments are soft. There is no pain with micro motion of the wrist. He is nearly able to make a full fist. No pain with passive stretch, no pain along the flexor tendon sheaths. Wrist range of motion 35 degrees of extension and flexion, full pronation and supination, full range of motion of the elbow and painless at the elbow and shoulder. Closed injury. Strong radial pulse. Hand is warm and well perfused. Normal sensation and motor function of the median, radial, ulnar nerves as well as AIN/PIN. No repeat blood work or imaging was obtained today although there was a past x-ray taken yesterday. It shows mild, what appears to be chondrocalcinosis and diffuse soft tissue swelling. ASSESSMENT AND PLAN: This 71-year-old man appears to have moderate cellulitis of the hand and wrist area on the left upper extremity. This could also be with chondrocalcinosis or pseudogout. A very low suspicion of an acute septic joint although to assess both the infection as well as for further workup, I will order a stat CBC, CRP as well as MRI with and without contrast of the hand and wrist area on a stat basis. I have also discussed the case and asked the hospitalist, Dr. Graves at 3 p.m. to see, assess the patient and to admit him for intravenous antibiotics with MRSA coverage as deemed appropriate as well as the patient will need to be consulted to infectious disease by the hospitalist service. Dr. Graves understands. I also communicated this to the emergency department physicians as well. The patient understands and in agreement with the plan, had no further questions or concerns.
[2021-04-06] MEDS ORDERED: ASPI81TA26 PO (16:57)
[2021-04-06] MEDS ORDERED: VANCOMYCIN HCL 1,000 MG, VIAL MATE ADAPTER 1 EACH in NS 250 ML IV ONE ×2 (17:00→18:00)
[2021-04-06] MEDS ORDERED: HOME MED LIST COMPLETE! XX SCH (17:05)
[2021-04-06 17:25] VITALS: BP 155/85
[2021-04-06] MEDS ORDERED: PROHANCE 279.3MG/ML 5ML VIAL As Ordered ONE (19:35)
[2021-04-06] MEDS ORDERED: PROHANCE 279.3MG/ML 15ML VIAL As Ordered ONE (19:35)
[2021-04-06 20:12] VITALS: BP 144/80
--- NOTE | 2021-04-06 20:56 | REPVR ---
PROCEDURE INFORMATION: Exam: MR Left Upper Extremity Other Than Joint Without and With Contrast; Hand Exam date and time: 04/06/2021 8:04 PM Age: 71 years old Clinical indication: Swelling; Hand; Left TECHNIQUE: Imaging protocol: MR of the Left upper extremity without and with intravenous contrast. Exam focused on the hand. Contrast material: PROHANCE; Contrast volume: 17 ml; Contrast route: INTRAVENOUS (IV); COMPARISON: CR Wrist, complete 04/05/2021 8:38 AM FINDINGS: Diffuse soft tissue swelling over the dorsum of the wrist and hand, with milder swelling along the volar aspect of the thumb. No soft tissue defect. No peripherally enhancing fluid collection suggestive of a drainable abscess. No distention of the extensor tendon sheath to suggest infectious tenosynovitis. The edema and non organized fluid in the dorsum of the hand appears to lie superficial to the extensor apparatus. Intrinsic muscles of the hand are unremarkable aside from low-grade edema and enhancement involving the thenar muscles of the thumb suggesting mild myositis without evidence of intramuscular abscess and with no soft tissue mass. Flexor tendons and carpal tunnel structures appear normal. Normal osseous alignment. No acute fracture or concerning marrow replacement. Benign appearing intra osseous cyst or hemangioma within the long finger metacarpal distally. No periosteal elevation. No abnormal marrow enhancement to suggest osteomyelitis. IMPRESSION: Superficial cellulitis of the hand particularly dorsally with no evidence of abscess, tendon sheath infection, septic arthropathy or osteomyelitis Electronically signed by: Darinel Oviedo On 04/06/2021 20:56:00 PM
--- NOTE | 2021-04-06 20:59 | REPVR ---
PROCEDURE INFORMATION: Exam: MR Left Upper Extremity Joint Without and With Contrast; Wrist Exam date and time: 04/06/2021 8:03 PM Age: 71 years old Clinical indication: Swelling; Wrist; Left; Additional info: Mri left hand and wrist assess soft tissue infection TECHNIQUE: Imaging protocol: MR of the Left upper extremity without and with contrast. Exam focused on the wrist. Contrast material: PROHANCE; Contrast volume: 17 ml; Contrast route: INTRAVENOUS (IV); COMPARISON: CR Wrist, complete 04/05/2021 8:38 AM FINDINGS: Image sequences are submitted and non anatomic orientation with multiple sequences submitted upside down. This is suboptimal technically. Subcutaneous soft tissue edema over the dorsum of the wrist and hand superficial to the extensor tendons. No organized fluid collection suggestive of a drainable abscess. Distal radius and ulna are neutral in alignment. Carpal bones align normally. No fracture or osteonecrosis. Benign degenerative cysts and edema within the carpal bones. The small volume of fluid in the radiocarpal articulations without proliferative synovitis. Small volume of fluid in the distal radioulnar joint. No intrinsic ligament injury No flexor or extensor tendon infection or disruption. Carpal tunnel is normal IMPRESSION: Superficial dorsal cellulitis and polyarticular degenerative change. No evidence of abscess or osteomyelitis Electronically signed by: Darinel Oviedo On 04/06/2021 20:59:37 PM
--- NOTE | 2021-04-07 00:48 | ECGEPIP ---
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
[2021-04-07] MEDS: VANCOMYCIN HCL 1,000 MG, VIAL MATE ADAPTER 1 EACH in NS 250 ML IV SCH ×2 (05:18→16:35)
[2021-04-07 06:43] VITALS: BP 117/63
[2021-04-07 06:46] LABS: HEMATOCRIT 37.4 % (42.0-52.0); HEMOGLOBIN 12.2 g/dl (13.5-17.5); MEAN CORPUSCULAR HEMOGLOBIN 27.2 pg (27.0-33.0); MEAN CORPUSCULAR HGB CONC 32.6 g/dl (32.0-36.5); MEAN CORPUSCULAR VOLUME 83.5 fl (80.0-96.0); PLATELET COUNT, AUTOMATED 209 10^3/uL (150-450); RED BLOOD COUNT 4.48 10^6/uL (4.30-6.10); WHITE BLOOD COUNT 6.4 10^3/uL (4.0-10.0)
[2021-04-07 07:06] LABS: BLOOD UREA NITROGEN 13 MG/DL (7-18); CALCIUM LEVEL 8.6 MG/DL (8.8-10.2); CARBON DIOXIDE LEVEL 24 MEQ/L (21-32); CHLORIDE LEVEL 106 MEQ/L (98-107); CREATININE FOR GFR 0.97 MG/DL (0.70-1.30); GLOMERULAR FILTRATION RATE > 60.0 (>42); GLUCOSE, FASTING 102 MG/DL (70-100); MAGNESIUM LEVEL 2.4 MG/DL (1.8-2.4); POTASSIUM SERUM 4.1 MEQ/L (3.5-5.1); SODIUM LEVEL 136 MEQ/L (136-145)
[2021-04-07] MEDS ORDERED: FLUBLOK(EGG FREE)(QUAD)INFLUENZA VACC 0.5ML SYRINGE 18YRS & OLDER IM ONE (09:00)
[2021-04-07] MEDS ORDERED: PNEUMOCOCCAL VACCINE 0.5ML SYRINGE (PNEUMOVAX 23) IM ONE (09:00)
--- NOTE | 2021-04-07 10:49 | IPN ---
PROGRESS NOTE DATE: 04/07/2021 CHIEF COMPLAINT: Follow up MRI left upper extremity with and without contrast including hand and wrist. HISTORY OF PRESENT ILLNESS: This 71-year-old man experienced about 24 hours of wrist pain and swelling, redness and warmth. Ordered MRI with and without contrast to assess the infection and rule out other differential diagnoses. MRI reviewed stating superficial dorsal cellulitis and periarticular degenerative change, no evidence of abscess or osteomyelitis. There is also another MRI report that states superficial cellulitis of the hand particularly dorsally with no evidence of abscess tendon sheath infection, septic arthropathy or osteomyelitis. Laboratory results: White blood cell count 6.4, CRP from yesterday was 6.64. ASSESSMENT/PLAN: This is a 71-year-old man; I reviewed his MRI findings late last evening at 1030pm. There is no evidence of an acute surgical problem or need for operative orthopedic intervention. Therefore, I recommend treatment with IV antibiotics under Hospitalist service and consultation with infectious disease, follow inflammatory markers and clinical response to the antibiotics to ensure complete resolution. I will not follow the patient while in the hospital. I can see the patient on as needed basis on outpatient basis. DRISS
[2021-04-07 14:00] VITALS: BP 121/86
[2021-04-07] MEDS: ACETAMINOPHEN TAB 650MG DOSE (2X325MG) PO PRN ×2 (17:15→22:48)
--- NOTE | 2021-04-07 18:01 | IPNPDOC ---
Subjective Date Seen The patient was seen on 04/07/21. Subjective Chief Complaint/HPI Mr. Wilson is a 71 year old male with left hand/wrist swelling and warm. This morning, he denies any chest pain or dyspnea. MRI was obtained and negative for osteomyelitis or fracture. Otherwise, will continue with vancomycin. 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 Will follow inflammatory markers. Objective Physical Examination General Exam: Positive: Alert, Cooperative Eye Exam: Negative: Sclera icteric ENT Exam: Positive: Atraumatic Neck Exam: Positive: Supple Chest Exam: Positive: Clear to auscultation Heart Exam: Positive: Rate Normal, Regular Rhythm Abdomen Exam: Positive: Normal bowel sounds, Soft; Negative: Tenderness Extremity Exam: Positive: Other (Warms and swelling in right hand) Neuro Exam: Positive: Normal Speech Psych Exam: Positive: Mental status NL, Mood NL Assessment /Plan Assessment Mr. Wilson is a 71 year old male with left hand/wrist swelling and warm 2/2 left hand cellulitis. MRI negative for fracture or osteomyelitis. Will continue Vancomycin and trending CRP. As CRP start downtrending, can consider doxycycline on discharge. Plan/VTE VTE Prophylaxis Ordered?: Yes Plan 1. Cellulitis of left hand -Failed outpatient therapy with Bactrim -Continue with IV vancomycin day 2 -MRI negative for osteomyelitis and fracture 2. Hypertension -Continue losartan 3. Hyperlipidemia -Continue ezetimibe and rosuvastatin 4. GERD -Switch from dexlansoprazole to Protonix 5. DVT ppx -Start Lovenox Disposition: Pending clinical improvement VS, I&O, 24H, Fishbone Vital Signs/I&O Vital Signs Date Time Temp Pulse Resp B/P (MAP) Pulse Ox O2 Delivery O2 Flow Rate FiO2 04/07/21 14:00 99.2 68 18 121/86 (98) 95 Room Air 04/06/21 17:25 97 I&O- Last 24 Hours up to 6 AM 04/07/21 06:00 Intake Total 300 ml Output Total 0 ml Balance 300 ml Laboratory Data 24H LABS Laboratory Tests 2 04/07/21 05:35: Methicillin-Resist S.aureus DNA PCR NOT DETECTED 04/07/21 06:35: Nucleated Red Blood Cells % (auto) 0.0, Anion Gap 6L, Glomerular Filtration Rate > 60.0, Calcium Level 8.6L, Magnesium Level 2.4 04/07/21 15:47: Vancomycin Level Trough 11.8 CBC/BMP Laboratory Tests 04/07/21 06:35 BRAD HURST DO Apr 07, 2021 18:01
[2021-04-07] MEDS: GABAPENTIN 100 MG CAP PO SCH (20:15)
[2021-04-07 22:00] VITALS: BP 120/58
[2021-04-08] MEDS: VANCOMYCIN HCL 1,000 MG, VIAL MATE ADAPTER 1 EACH in NS 250 ML IV SCH (05:03)
[2021-04-08 06:00] VITALS: BP 117/69
[2021-04-08 06:26] LABS: HEMOGLOBIN 12.1 g/dl (13.5-17.5); MEAN CORPUSCULAR HEMOGLOBIN 27.3 pg (27.0-33.0); MEAN CORPUSCULAR HGB CONC 32.7 g/dl (32.0-36.5); MEAN CORPUSCULAR VOLUME 83.5 fl (80.0-96.0); PLATELET COUNT, AUTOMATED 232 10^3/uL (150-450); RED BLOOD COUNT 4.43 10^6/uL (4.30-6.10); WHITE BLOOD COUNT 5.7 10^3/uL (4.0-10.0)
[2021-04-08 06:46] LABS: ERYTHROCYTE SEDIMENTATION RATE 37 mm/hr (0-20)
[2021-04-08 06:48] LABS: BLOOD UREA NITROGEN 11 MG/DL (7-18); C REACTIVE PROTEIN QUANTITATIV 4.25 MG/DL (0.00-0.30); CALCIUM LEVEL 8.1 MG/DL (8.8-10.2); CARBON DIOXIDE LEVEL 24 MEQ/L (21-32); CHLORIDE LEVEL 105 MEQ/L (98-107); CREATININE FOR GFR 0.93 MG/DL (0.70-1.30); GLOMERULAR FILTRATION RATE > 60.0 (>42); GLUCOSE, FASTING 99 MG/DL (70-100); POTASSIUM SERUM 4.2 MEQ/L (3.5-5.1); SODIUM LEVEL 136 MEQ/L (136-145)
[2021-04-08 08:04] VITALS: BP 117/69
[2021-04-08] MEDS: GABAPENTIN 100 MG CAP PO SCH (08:04)
[2021-04-08] MEDS ORDERED: EZETIMIBE 10MG TABLET (ZETIA) PO SCH (09:00)
[2021-04-08] MEDS ORDERED: ENOXAPARIN 40MG/0.4ML SYRINGE (J1650 PER 10MG) SC SCH (09:00)
[2021-04-08] MEDS ORDERED: LOSARTAN 25 MG TAB PO SCH (09:00)
[2021-04-08] MEDS ORDERED: ROSUVASTATIN 10 MG TAB (CRESTOR) PO SCH (09:00)
[2021-04-08] MEDS ORDERED: PANTOPRAZOLE 40MG TAB (PROTONIX) PO SCH (09:00)
[2021-04-08] MEDS ORDERED: DOXY-350 PO (09:10)
--- NOTE | 2021-04-08 18:48 | DS.PDOC ---
Discharge Summary General Date of Admission Apr 06, 2021 at 15:28 Date of Discharge Apr 08, 2021 Specialist/Consultants Involve Orthopedic surgery, Dr. Wood Discharge Summary PROCEDURES PERFORMED DURING STAY: None ADMITTING DIAGNOSES: 1. Cellulitis of the left hand and wrist 2. Hypertension 3. Hyperlipidemia 4. GERD DISCHARGE DIAGNOSES: 1. Cellulitis of the left hand and wrist 2. Hypertension 3. Hyperlipidemia 4. GERD COMPLICATIONS/CHIEF COMPLAINT: Cellulitis Of Left Wrist. HISTORY OF PRESENT ILLNESS: Copied from admitting attending's H&P "Patient is a 71-year-old male who presented to the emergency department with a 1 day history of left hand/wrist swelling. Patient states he came to the emergency department yesterday and was discharged after being diagnosed with cellulitis overlying the left wrist and left hand. Patient was supposed to see orthopedic surgery in the office today however, the swelling had become worse and the patient decided come back to the emergency department. Patient says he woke up like this on Tuesday morning, 04/05/2021. Patient denies any injury to the area or any known trauma. Patient does not have any cuts or overlying injuries to the area. Patient is having difficulty moving his wrist due to pain secondary to the swelling in the skin. Patient does not have any numbness or tingling distal to the swelling. The swelling is all on the dorsal aspect of the hand. Patient denies having any fevers or chills. Patient does not have any other symptoms at this time." HOSPITAL COURSE: During hospitalization, patient had MRI. MRI was negative for osteomyelitis or fracture. There is no need for orthopedic intervention. We do not have infectious disease available at this time. Patient did well on the vancomycin and patient swelling and erythema improved. CRP also declined while on IV Vanco. Patient did receive his flu vaccine and pneumococcal vaccine while hospitalized. With his flu vaccine, it caused some induration, but resolved the following morning. Today patient felt well and denies any pain from his hand. The swelling has gone down. He feels ready for home. Patient was transitioned to doxycycline for an additional 7 more days. DISCHARGE MEDICATIONS: Please see below. ALLERGIES: Please see below. PHYSICAL EXAMINATION ON DISCHARGE: VITAL SIGNS: Please see below. GENERAL: Comfortable, in no apparent distress. HEENT: EOMI, sclera clear. NECK: Supple. RESPIRATORY: Lungs clear to auscultation bilaterally, no rales, wheeze or rhonchi. CARDIOVASCULAR: Regular rate and rhythm. ABDOMEN: Soft, nontender, no guarding or rebound tenderness. Normal bowel sounds. MUSCLE SKELETAL: Swelling in left hand improved, no longer tender. NEUROLOGICAL: CN 312 grossly intact although he is hard of hearing. PSYCHOLOGICAL: Normal mood and affect LABORATORY DATA: Please see below. IMAGING: Radiologist interpretation MRI hand Superficial cellulitis of the hand particularly dorsally with no evidence of abscess, tendon sheath infection, septic arthropathy or osteomyelitis MRI wrist Superficial dorsal cellulitis and polyarticular degenerative change. No evidence of abscess or osteomyelitis PROGNOSIS: Good ACTIVITY: As tolerated. DIET: As tolerated DISCHARGE PLAN: Patient to return home with home health services. We will continue patient on doxycycline for additional 7 more days DISPOSITION: Home Health Service. DISCHARGE INSTRUCTIONS: 1. Follow-up with PCP in a week. ITEMS TO FOLLOWUP ON ON OUTPATIENT: 1. Swelling of left hand 2. Recommend following CRP DISCHARGE CONDITION: Stable Total time spent discharge planning, discharge summary, and medication reconciliation: 45 minutes Vital Signs/I&Os Vital Signs Date Time Temp Pulse Resp B/P (MAP) Pulse Ox O2 Delivery O2 Flow Rate FiO2 04/08/21 08:04 117/69 04/08/21 06:00 99.6 85 19 96 Room Air 04/06/21 17:25 97 I&O- Last 24 Hours up to 6 AM 04/08/21 06:00 Intake Total 1080 ml Output Total 175 ml Balance 905 ml Laboratory Data Labs 24H Laboratory Tests 2 04/08/21 05:53: Nucleated Red Blood Cells % (auto) 0.0, Erythrocyte Sedimentation Rate 37H, Ani on Gap 7L, Glomerular Filtration Rate > 60.0, Calcium Level 8.1L, C-Reactive Protein, Quantitative 4.25H CBC/BMP Laboratory Tests 04/08/21 05:53 Microbiology Microbiology 04/07/21 Blood Culture - Preliminary, Resulted No growth after 24 hours . All specim... 04/07/21 Blood Culture - Preliminary, Resulted No growth after 24 hours . All specim... Discharge Medications Scheduled Dexlansoprazole (Dexilant) 60 Mg , 60 MG PO DAILY, (Reported) Doxycycline Monohydrate (Doxycycline) 100 Mg Capsule, 100 MG PO BID Ezetimibe (Ezetimibe) 10 Mg Tablet, 10 MG PO DAILY, (Reported) Gabapentin (Gabapentin) 100 Mg Capsule, 100 MG PO TID, (Reported) Losartan Potassium (Losartan Potassium) 25 Mg Tablet, 25 MG PO DAILY, (Reported) Rosuvastatin Calcium (Crestor) 40 Mg Tablet, 40 MG PO DAILY, (Reported) Scheduled PRN Acetaminophen (8 Hour) 650 Mg Tablet.er, 650 MG PO Q6HP PRN for pain Allergies Coded Allergies: No Known Allergies (Unverified , 08/25/18) BRAD HURST DO Apr 08, 2021 18:48
== END 2021-04-08 10:40 | disposition home health service (06) | DRG 603 ==
LOC: M ED 12:58 → M ED INP 15:28 → ENRESERV 16:28 → M MS5PR 17:10
PROVIDERS: ADMIT Family Medicine; ATTEND Internal Medicine
DX: L03.114 Cellulitis of left upper limb (principal); I10 Essential (primary) hypertension; J44.9 Chronic obstructive pulmonary disease, unspecified; E78.5 Hyperlipidemia, unspecified; F17.200 Nicotine dependence, unspecified, uncomplicated; N18.30 Chronic kidney disease, stage 3 unspecified; K21.9 Gastro-esophageal reflux disease without esophagitis; Z79.899 Other long term (current) drug therapy; E53.8 Deficiency of other specified B group vitamins; K76.0 Fatty (change of) liver, not elsewhere classified; B35.3 Tinea pedis; Z79.82 Long term (current) use of aspirin

== ENCOUNTER → 2021-04-14 | Outpatient (CLI) | payer MEDICARE, MEDICAID ==
[~2021-04-14] MED LIST changes: +ASPI81TA26 PO; +BACTDSTA PO; +CEPH500C PO; +DEXI60CA2 PO; +DOXY-350 PO; +EZET10TA21 PO; +GABA-1171 PO; +LOSA25TA13; +LOSA25TA13 PO; -LOSA25TA14
== END ==
LOC: EEVIPCON 11:40 → M WHC 11:40
PROVIDERS: ATTEND Family Medicine
DX: R60.0 Localized edema (principal)

== ENCOUNTER → 2021-04-28 | Outpatient (CLI) | payer MEDICARE, MEDICAID ==
[~2021-04-28] MED LIST changes: -CEPH500C PO
[2021-04-28 14:28] LABS: BASO % 0.6 % (0.0-1.0); EOS # 0.1 10^3/uL (0.0-0.5); EOS % 1.9 % (0.0-3.0); HEMATOCRIT 41.5 % (42.0-52.0); LYMPH % 31.3 % (24.0-44.0); MEAN CORPUSCULAR HEMOGLOBIN 26.7 pg (27.0-33.0); MEAN CORPUSCULAR HGB CONC 31.3 g/dl (32.0-36.5); MEAN CORPUSCULAR VOLUME 85.4 fl (80.0-96.0); MONO # 0.8 10^3/uL (0.0-0.8); MONO % 12.5 % (2.0-8.0); NEUTROPHILS # 3.3 10^3/uL (1.5-8.5); NEUTROPHILS % 53.4 % (36.0-66.0); PLATELET COUNT, AUTOMATED 328 10^3/uL (150-450); RED BLOOD COUNT 4.86 10^6/uL (4.30-6.10); WHITE BLOOD COUNT 6.3 10^3/uL (4.0-10.0)
[2021-04-28 15:03] LABS: ALBUMIN 3.6 GM/DL (3.2-5.2); ALT/SGPT 43 U/L (12-78); BILIRUBIN,TOTAL 0.4 MG/DL (0.2-1.0); BLOOD UREA NITROGEN 14 MG/DL (7-18); CALCIUM LEVEL 9.6 MG/DL (8.8-10.2); CARBON DIOXIDE LEVEL 29 MEQ/L (21-32); CHLORIDE LEVEL 106 MEQ/L (98-107); CHOLESTEROL LEVEL 142 MG/DL (<200); CHOLESTEROL RISK RATIO 2.958 (<5); CREATININE FOR GFR 0.97 MG/DL (0.70-1.30); GLOMERULAR FILTRATION RATE > 60.0 (>42); GLUCOSE, FASTING 94 MG/DL (70-100); HDL CHOLESTEROL 48 MG/DL (>40); LDL CHOLESTEROL 55 MG/DL (<100); NON-HDL-C 94 MG/DL; NT-PRO BNP 16 PG/ML (<125); POTASSIUM SERUM 5.3 MEQ/L (3.5-5.1); SODIUM LEVEL 140 MEQ/L (136-145); TOTAL PROTEIN 6.7 GM/DL (6.4-8.2); TRIGLYCERIDES LEVEL 196 MG/DL (<150)
[2021-04-28 15:08] LABS: TOTAL 25(OH) VITAMIN D 9.8 NG/ML (30.0-100.0)
[2021-04-28 15:09] LABS: PTH INTACT 56.9 PG/ML (18.5-88.0)
== END ==
LOC: M LAB 14:00
PROVIDERS: ATTEND Family Medicine
DX: Z12.5 Encounter for screening for malignant neoplasm of prostate (principal); E78.5 Hyperlipidemia, unspecified; I10 Essential (primary) hypertension; E55.9 Vitamin D deficiency, unspecified; Z79.899 Other long term (current) drug therapy
CPT/HCPCS: 36415; 80053; 80061; 82306; 83880; 83970; 85025; G0103

== ENCOUNTER → 2021-05-12 | Outpatient (CLI) | payer MEDICARE, MEDICAID ==
[~2021-05-12] MED LIST changes: +CEPH500C PO
== END ==
LOC: M SOG 08:52
PROVIDERS: ATTEND Orthopaedic Surgery Sports Medicine
DX: M11.232 Other chondrocalcinosis, left wrist (principal); L03.114 Cellulitis of left upper limb

== ENCOUNTER → 2021-05-13 | Outpatient (CLI) | payer MEDICARE, MEDICAID ==
[2021-05-13 17:17] LABS: BASO % 0.5 % (0.0-1.0); EOS # 0.2 10^3/uL (0.0-0.5); EOS % 2.3 % (0.0-3.0); HEMATOCRIT 41.1 % (42.0-52.0); HEMOGLOBIN 13.1 g/dl (13.5-17.5); LYMPH # 1.9 10^3/uL (1.5-5.0); MEAN CORPUSCULAR HEMOGLOBIN 27.2 pg (27.0-33.0); MEAN CORPUSCULAR HGB CONC 31.9 g/dl (32.0-36.5); MEAN CORPUSCULAR VOLUME 85.3 fl (80.0-96.0); MONO # 0.8 10^3/uL (0.0-0.8); MONO % 10.1 % (2.0-8.0); NEUTROPHILS # 4.5 10^3/uL (1.5-8.5); NEUTROPHILS % 60.8 % (36.0-66.0); PLATELET COUNT, AUTOMATED 218 10^3/uL (150-450); RED BLOOD COUNT 4.82 10^6/uL (4.30-6.10); WHITE BLOOD COUNT 7.5 10^3/uL (4.0-10.0)
[2021-05-13 17:31] LABS: C REACTIVE PROTEIN QUANTITATIV < 0.30 MG/DL (0.00-0.30); URIC ACID 4.4 MG/DL (3.5-7.2)
== END ==
LOC: M PLALAB 15:14
PROVIDERS: ATTEND Physician Assistant Medical
DX: L03.114 Cellulitis of left upper limb (principal)

== ENCOUNTER → 2021-05-18 | Outpatient (CLI) | payer MEDICARE, MEDICAID ==
[2021-05-18 11:10] LABS: BASO # 0.1 10^3/uL (0.0-0.2); BASO % 0.7 % (0.0-1.0); EOS # 0.2 10^3/uL (0.0-0.5); EOS % 2.8 % (0.0-3.0); HEMATOCRIT 42.3 % (42.0-52.0); HEMOGLOBIN 13.1 g/dl (13.5-17.5); LYMPH # 1.8 10^3/uL (1.5-5.0); LYMPH % 26.3 % (24.0-44.0); MEAN CORPUSCULAR HEMOGLOBIN 26.6 pg (27.0-33.0); MEAN CORPUSCULAR VOLUME 85.8 fl (80.0-96.0); MONO # 0.8 10^3/uL (0.0-0.8); MONO % 11.4 % (2.0-8.0); NEUTROPHILS # 3.9 10^3/uL (1.5-8.5); NEUTROPHILS % 58.4 % (36.0-66.0); PLATELET COUNT, AUTOMATED 233 10^3/uL (150-450); RED BLOOD COUNT 4.93 10^6/uL (4.30-6.10); WHITE BLOOD COUNT 6.7 10^3/uL (4.0-10.0)
[2021-05-18 11:57] LABS: ERYTHROCYTE SEDIMENTATION RATE 10 mm/hr (0-20)
== END ==
LOC: M LAB 09:59
PROVIDERS: ATTEND Orthopaedic Surgery Sports Medicine
DX: L03.114 Cellulitis of left upper limb (principal)

== ENCOUNTER → 2021-07-14 | Outpatient (CLI) | payer MEDICARE, MEDICAID | LOC: M RAD 07:47 | PROVIDERS: ATTEND Family Medicine | DX: Z12.2 Encounter for screening for malignant neoplasm of respiratory organs (principal); Z79.899 Other long term (current) drug therapy ==

== ENCOUNTER → 2021-09-16 | Outpatient (CLI) | payer MEDICARE, MEDICAID ==
[2021-09-16 11:15] LABS: BASO % 0.6 % (0.0-1.0); EOS # 0.2 10^3/uL (0.0-0.5); EOS % 2.5 % (0.0-3.0); HEMOGLOBIN 13.3 g/dl (13.5-17.5); LYMPH % 14.7 % (24.0-44.0); MEAN CORPUSCULAR HEMOGLOBIN 27.3 pg (27.0-33.0); MEAN CORPUSCULAR HGB CONC 31.7 g/dl (32.0-36.5); MEAN CORPUSCULAR VOLUME 86.2 fl (80.0-96.0); MONO % 14.5 % (2.0-8.0); NEUTROPHILS # 4.5 10^3/uL (1.5-8.5); NEUTROPHILS % 67.4 % (36.0-66.0); PLATELET COUNT, AUTOMATED 202 10^3/uL (150-450); RED BLOOD COUNT 4.87 10^6/uL (4.30-6.10); WHITE BLOOD COUNT 6.7 10^3/uL (4.0-10.0)
[2021-09-16 11:47] LABS: HEMOGLOBIN A1c 5.9 %
[2021-09-16 12:00] LABS: ALBUMIN 3.8 GM/DL (3.2-5.2); BLOOD UREA NITROGEN 15 MG/DL (7-18); CALCIUM LEVEL 9.8 MG/DL (8.8-10.2); CARBON DIOXIDE LEVEL 29 MEQ/L (21-32); CHLORIDE LEVEL 109 MEQ/L (98-107); FERRITIN 158 NG/ML (26-388); GLOMERULAR FILTRATION RATE > 60.0 (>42); GLUCOSE, FASTING 98 MG/DL (70-100); IRON (FE) 40 UG/DL (65-175); PERCENT SATURATION 12.9 % (19.7-50.0); PHOSPHORUS LEVEL 3.6 MG/DL (2.5-4.9); POTASSIUM SERUM 4.5 MEQ/L (3.5-5.1); SODIUM LEVEL 143 MEQ/L (136-145); TOTAL IRON BINDING CAPACITY 310 UG/DL (250-450); URIC ACID 3.9 MG/DL (3.5-7.2)
[2021-09-16 12:04] LABS: PTH INTACT 54.6 PG/ML (18.5-88.0); TOTAL 25(OH) VITAMIN D 13.1 NG/ML (30.0-100.0)
[2021-09-16 12:05] LABS: VITAMIN B12 LEVEL 677 PG/ML (247-911)
== END ==
LOC: M LAB 10:44
PROVIDERS: ATTEND Family Medicine
DX: R73.01 Impaired fasting glucose (principal); E55.9 Vitamin D deficiency, unspecified; M47.816 Spondylosis without myelopathy or radiculopathy, lumbar region; E53.8 Deficiency of other specified B group vitamins; Z79.899 Other long term (current) drug therapy

== ENCOUNTER → 2022-05-25 | Outpatient (CLI) | payer MEDICARE, MEDICAID ==
[~2022-05-25] MED LIST changes: -DOXY-350 PO; +DOXY-444 PO
[2022-05-25 14:46] LABS: BASO # 0.1 10^3/uL (0.0-0.2); BASO % 0.6 % (0.0-1.0); EOS # 0.2 10^3/uL (0.0-0.5); EOS % 2.2 % (0.0-3.0); HEMATOCRIT 42.2 % (42.0-52.0); HEMOGLOBIN 13.5 g/dl (13.5-17.5); LYMPH # 1.5 10^3/uL (1.5-5.0); MEAN CORPUSCULAR HEMOGLOBIN 27.4 pg (27.0-33.0); MEAN CORPUSCULAR VOLUME 85.6 fl (80.0-96.0); MONO # 0.8 10^3/uL (0.0-0.8); MONO % 9.6 % (2.0-8.0); NEUTROPHILS % 70.1 % (36.0-66.0); PLATELET COUNT, AUTOMATED 238 10^3/uL (150-450); RED BLOOD COUNT 4.93 10^6/uL (4.30-6.10); WHITE BLOOD COUNT 8.5 10^3/uL (4.0-10.0)
[2022-05-25 15:18] LABS: ALBUMIN 3.9 G/DL (3.2-5.2); ALKALINE PHOSPHATASE 100 U/L (46-116); ALT/SGPT 33 U/L (7.0-40); AST/SGOT 8 U/L (<34); BILIRUBIN,TOTAL 0.6 MG/DL (0.3-1.2); BLOOD UREA NITROGEN 17 MG/DL (9-23); CALCIUM LEVEL 9.3 MG/DL (8.3-10.6); CARBON DIOXIDE LEVEL 26 MMOL/L (20-31); CHLORIDE LEVEL 109 MMOL/L (98-107); CHOLESTEROL LEVEL 143 MG/DL (<200); CHOLESTEROL RISK RATIO 2.55 (<5); CREATININE FOR GFR 0.93 MG/DL (0.70-1.30); FERRITIN 98.9 NG/ML (10.5-307.3); FREE T4 1.05 NG/DL (0.89-1.76); GLOMERULAR FILTRATION RATE > 60.0 (>42); GLUCOSE, FASTING 93 MG/DL (74-106); HDL CHOLESTEROL 55.9 MG/DL (>40); LDL CHOLESTEROL 61.1 MG/DL (<100); NON-HDL-C 87 MG/DL; POTASSIUM SERUM 4.1 MMOL/L (3.5-5.1); SODIUM LEVEL 140 MMOL/L (136-145); TOTAL PROTEIN 6.9 G/DL (5.7-8.2); TRIGLYCERIDES LEVEL 130 MG/DL (<150)
[2022-05-25 15:19] LABS: THYROID STIMULATING HORMONE 1.207 uIU/ML (0.55-4.78)
== END ==
LOC: M RAD 13:26
PROVIDERS: ATTEND Family Medicine
DX: E53.8 Deficiency of other specified B group vitamins (principal); M17.0 Bilateral primary osteoarthritis of knee; Z12.5 Encounter for screening for malignant neoplasm of prostate; E87.5 Hyperkalemia; Z79.899 Other long term (current) drug therapy
CPT/HCPCS: 36415; 73564; 80053; 80061; 82728; 84439; 84443; 85025; 85046; 86677; G0103

== ENCOUNTER → 2022-07-15 | Outpatient (CLI) | payer MEDICARE, MEDICAID | LOC: M RAD 09:18 | PROVIDERS: ATTEND Family Medicine | DX: Z12.2 Encounter for screening for malignant neoplasm of respiratory organs (principal); F17.210 Nicotine dependence, cigarettes, uncomplicated; J43.9 Emphysema, unspecified; R91.1 Solitary pulmonary nodule; I70.0 Atherosclerosis of aorta; I25.10 Atherosclerotic heart disease of native coronary artery without angina pectoris; K44.9 Diaphragmatic hernia without obstruction or gangrene ==

== ENCOUNTER → 2022-11-04 | Outpatient (REF) | payer MEDICARE, MEDICAID | LOC: M SFHCPLAZ 16:25 | PROVIDERS: ATTEND Family Medicine | DX: E55.9 Vitamin D deficiency, unspecified (principal); E53.8 Deficiency of other specified B group vitamins; R73.01 Impaired fasting glucose ==

== ENCOUNTER → 2022-11-09 | Outpatient (CLI) | payer MEDICARE, MEDICAID ==
[2022-11-09 10:56] LABS: BASO % 0.7 % (0.0-1.0); EOS # 0.4 10^3/uL (0.0-0.5); EOS % 6.8 % (0.0-3.0); HEMATOCRIT 38.3 % (42.0-52.0); HEMOGLOBIN 12.3 g/dl (13.5-17.5); LYMPH # 1.2 10^3/uL (1.5-5.0); MEAN CORPUSCULAR HGB CONC 32.1 g/dl (32.0-36.5); MEAN CORPUSCULAR VOLUME 87.2 fl (80.0-96.0); MONO # 0.5 10^3/uL (0.0-0.8); MONO % 9.1 % (2.0-8.0); NEUTROPHILS # 3.7 10^3/uL (1.5-8.5); NEUTROPHILS % 63.1 % (36.0-66.0); PLATELET COUNT, AUTOMATED 217 10^3/uL (150-450); RED BLOOD COUNT 4.39 10^6/uL (4.30-6.10); WHITE BLOOD COUNT 5.8 10^3/uL (4.0-10.0)
[2022-11-09 11:31] LABS: ALBUMIN 3.6 G/DL (3.2-5.2); ALKALINE PHOSPHATASE 78 U/L (46-116); ALT/SGPT 35 U/L (7.0-40); AST/SGOT 24 U/L (<34); BILIRUBIN,TOTAL 0.4 MG/DL (0.3-1.2); BLOOD UREA NITROGEN 19 MG/DL (9-23); CALCIUM LEVEL 9.2 MG/DL (8.3-10.6); CARBON DIOXIDE LEVEL 25 MMOL/L (20-31); CHLORIDE LEVEL 106 MMOL/L (98-107); CREATININE FOR GFR 1.05 MG/DL (0.70-1.30); GLOMERULAR FILTRATION RATE > 60.0 (>42); GLUCOSE, FASTING 94 MG/DL (74-106); POTASSIUM SERUM 4.3 MMOL/L (3.5-5.1); SODIUM LEVEL 140 MMOL/L (136-145); TOTAL PROTEIN 6.4 G/DL (5.7-8.2)
[2022-11-09 11:32] LABS: TOTAL 25(OH) VITAMIN D 20.7 NG/ML (20.0-100.0)
[2022-11-09 11:33] LABS: FERRITIN 117.5 NG/ML (10.5-307.3); VITAMIN B12 LEVEL 1124 PG/ML (211-911)
[2022-11-09 11:46] LABS: HEMOGLOBIN A1c 5.7 % (4.0-6.0)
== END ==
LOC: M LAB 10:05
PROVIDERS: ATTEND Family Medicine
DX: E53.8 Deficiency of other specified B group vitamins (principal); R73.01 Impaired fasting glucose

== ENCOUNTER → 2023-01-25 | Outpatient (CLI) | payer MEDICARE, MEDICAID ==
[2023-01-25 14:33] LABS: BLOOD UREA NITROGEN 17 MG/DL (9-23); CALCIUM LEVEL 9.5 MG/DL (8.3-10.6); CARBON DIOXIDE LEVEL 30 MMOL/L (20-31); CHLORIDE LEVEL 105 MMOL/L (98-107); CREATININE FOR GFR 1.06 MG/DL (0.70-1.30); GLOMERULAR FILTRATION RATE > 60.0 (>42); GLUCOSE, FASTING 101 MG/DL (74-106); PHOSPHORUS LEVEL 3.1 MG/DL (2.4-5.1); POTASSIUM SERUM 5.2 MMOL/L (3.5-5.1); SODIUM LEVEL 142 MMOL/L (136-145)
== END ==
LOC: M PLALAB 09:26
PROVIDERS: ATTEND Family Medicine
DX: E78.5 Hyperlipidemia, unspecified (principal)

== ENCOUNTER → 2023-01-31 | Outpatient (CLI) | payer MEDICARE, MEDICAID ==
[~2023-01-31] MED LIST changes: +ISOVUE-370 76% 100ML VIAL ONE
== END ==
LOC: M PLAIMG 08:53
PROVIDERS: ATTEND Family Medicine
DX: R91.1 Solitary pulmonary nodule (principal)
CPT/HCPCS: 71260; Q9967

== ENCOUNTER → 2023-03-18 | Outpatient (REF) | payer MEDICARE, MEDICAID ==
[~2023-03-18] MED LIST changes: -ISOVUE-370 76% 100ML VIAL ONE
== END ==
LOC: M SFHCPLAZ 12:43
PROVIDERS: ATTEND Family Medicine
DX: Z53.9 Procedure and treatment not carried out, unspecified reason (principal)

== ENCOUNTER → 2023-04-01 | Outpatient (CLI) | payer MEDICARE, MEDICAID | LOC: M PLAIMG 13:17 | PROVIDERS: ATTEND Family Medicine | DX: J32.9 Chronic sinusitis, unspecified (principal) ==

== ENCOUNTER → 2023-08-30 | Outpatient (CLI) | payer MEDICARE, MEDICAID ==
[~2023-08-30] MED LIST changes: +DOXY-440 PO; -DOXY-444 PO; -ROSU40TA4; +ROSU40TA63
[2023-08-30 10:04] LABS: BASO % 0.6 % (0.0-1.0); EOS # 0.2 10^3/uL (0.0-0.5); EOS % 2.9 % (0.0-3.0); HEMATOCRIT 39.3 % (42.0-52.0); HEMOGLOBIN 12.7 g/dl (13.5-17.5); LYMPH # 1.6 10^3/uL (1.5-5.0); MEAN CORPUSCULAR HEMOGLOBIN 27.5 pg (27.0-33.0); MEAN CORPUSCULAR HGB CONC 32.3 g/dl (32.0-36.5); MEAN CORPUSCULAR VOLUME 85.1 fl (80.0-96.0); MONO # 0.9 10^3/uL (0.0-0.8); MONO % 13.7 % (2.0-8.0); NEUTROPHILS # 3.6 10^3/uL (1.5-8.5); NEUTROPHILS % 57.3 % (36.0-66.0); PLATELET COUNT, AUTOMATED 248 10^3/uL (150-450); RED BLOOD COUNT 4.62 10^6/uL (4.30-6.10); WHITE BLOOD COUNT 6.2 10^3/uL (4.0-10.0)
[2023-08-30 10:33] LABS: ALBUMIN 3.7 G/DL (3.2-5.2); ALKALINE PHOSPHATASE 90 U/L (46-116); ALT/SGPT 21 U/L (7.0-40); AST/SGOT 17 U/L (<34); BILIRUBIN,TOTAL 0.6 MG/DL (0.3-1.2); BLOOD UREA NITROGEN 22 MG/DL (9-23); CALCIUM LEVEL 9.5 MG/DL (8.3-10.6); CARBON DIOXIDE LEVEL 26 MMOL/L (20-31); CHLORIDE LEVEL 105 MMOL/L (98-107); CHOLESTEROL LEVEL 146 MG/DL (<200); CHOLESTEROL RISK RATIO 3.17 (<5); CREATININE FOR GFR 1.13 MG/DL (0.70-1.30); GLOMERULAR FILTRATION RATE > 60.0 (>42); GLUCOSE, FASTING 94 MG/DL (74-106); LDL CHOLESTEROL 73.8 MG/DL (<100); POTASSIUM SERUM 4.5 MMOL/L (3.5-5.1); PSA SCREENING 0.41 NG/ML (< 4.00); SODIUM LEVEL 137 MMOL/L (136-145); TOTAL PROTEIN 6.7 G/DL (5.7-8.2); TRIGLYCERIDES LEVEL 131 MG/DL (<150)
[2023-08-30 10:34] LABS: FREE T4 1.12 NG/DL (0.89-1.76); THYROID STIMULATING HORMONE 2.234 uIU/ML (0.55-4.78)
== END ==
LOC: M LAB 09:04
PROVIDERS: ATTEND Family Medicine
DX: E53.8 Deficiency of other specified B group vitamins (principal); E78.5 Hyperlipidemia, unspecified; Z12.5 Encounter for screening for malignant neoplasm of prostate
CPT/HCPCS: 36415; 80053; 80061; 82668; 84439; 84443; 85025; G0103

== ENCOUNTER → 2023-09-09 | Outpatient (REF) | payer MEDICARE, MEDICAID | LOC: M SFHCPLAZ 11:50 | PROVIDERS: ATTEND Family Medicine | DX: E78.5 Hyperlipidemia, unspecified (principal); E53.8 Deficiency of other specified B group vitamins; R73.01 Impaired fasting glucose; I10 Essential (primary) hypertension ==

== ENCOUNTER → 2024-01-17 | Outpatient (CLI) | payer MEDICARE, MEDICAID ==
[~2024-01-17] MED LIST changes: +ESOM1CAP20; -ESOM1CAP5; -ROSU40TA63; +ROSU40TA81
== END ==
LOC: M RAD 11:14
PROVIDERS: ATTEND Otolaryngology
DX: Z01.818 Encounter for other preprocedural examination (principal); J32.4 Chronic pansinusitis

== ENCOUNTER → 2024-02-02 | Outpatient (CLI) | payer MEDICARE, MEDICAID ==
[2024-02-02 14:48] LABS: BASO # 0.1 10^3/uL (0.0-0.2); BASO % 0.8 % (0.0-1.0); EOS # 0.4 10^3/uL (0.0-0.5); EOS % 5.5 % (0.0-3.0); HEMATOCRIT 41.2 % (42.0-52.0); HEMOGLOBIN 13.2 g/dl (13.5-17.5); LYMPH % 27.9 % (24.0-44.0); MEAN CORPUSCULAR HEMOGLOBIN 27.4 pg (27.0-33.0); MEAN CORPUSCULAR VOLUME 85.7 fl (80.0-96.0); MONO # 0.8 10^3/uL (0.0-0.8); MONO % 10.4 % (2.0-8.0); PLATELET COUNT, AUTOMATED 247 10^3/uL (150-450); RED BLOOD COUNT 4.81 10^6/uL (4.30-6.10); WHITE BLOOD COUNT 7.3 10^3/uL (4.0-10.0)
[2024-02-02 15:07] LABS: HEMOGLOBIN A1c 5.8 % (4.0-6.0)
[2024-02-02 15:22] LABS: ALBUMIN 3.9 G/DL (3.2-5.2); ALKALINE PHOSPHATASE 88 U/L (46-116); ALT/SGPT 23 U/L (7.0-40); AST/SGOT 14 U/L (<34); BILIRUBIN,TOTAL 0.6 MG/DL (0.3-1.2); BLOOD UREA NITROGEN 22 MG/DL (9-23); CALCIUM LEVEL 9.9 MG/DL (8.3-10.6); CARBON DIOXIDE LEVEL 30 MMOL/L (20-31); CHLORIDE LEVEL 108 MMOL/L (98-107); CREATININE FOR GFR 1.01 MG/DL (0.70-1.30); GLOMERULAR FILTRATION RATE > 60.0 (>42); GLUCOSE, FASTING 90 MG/DL (74-106); POTASSIUM SERUM 4.6 MMOL/L (3.5-5.1); SODIUM LEVEL 141 MMOL/L (136-145); TOTAL PROTEIN 7.2 G/DL (5.7-8.2)
[2024-02-02 15:24] LABS: FERRITIN 114.6 NG/ML (10.5-307.3)
== END ==
LOC: M PLALAB 13:48
PROVIDERS: ATTEND Family Medicine
DX: E53.8 Deficiency of other specified B group vitamins (principal); E78.5 Hyperlipidemia, unspecified; R73.01 Impaired fasting glucose; I10 Essential (primary) hypertension; R06.02 Shortness of breath

== ENCOUNTER 2024-04-18 11:12 | Day surgery (SDC) | payer MEDICARE, MEDICAID ==
[~2024-04-18] VITALS: Ht 177.8 cm; Wt 88.9 kg
[2024-04-18] MEDS ORDERED: propofoL 200 MG/20 ML VIAL As Ordered ONE (13:07)
[2024-04-18] MEDS ORDERED: GLYCOPYRROLATE INJ 0.2 MG/ML 2 ML VIAL As Ordered ONE (13:11)
[2024-04-18] MEDS ORDERED: LIDOCAINE 2% 100MG/5ML SDV (FOR ANES.) As Ordered ONE (13:11)
[2024-04-18 13:45] VITALS: BP 133/64; O2SAT 97
== END 2024-04-18 13:55 | disposition home or self-care (01) ==
LOC: M OPP 11:12
PROVIDERS: ATTEND Internal Medicine Gastroenterology
DX: Z12.11 Encounter for screening for malignant neoplasm of colon (principal); D12.3 Benign neoplasm of transverse colon; K64.8 Other hemorrhoids; K57.30 Diverticulosis of large intestine without perforation or abscess without bleeding
CPT/HCPCS: 45385; 88305; J1596

== ENCOUNTER → 2024-05-30 | Outpatient (CLI) | payer MEDICARE, MEDICAID ==
[2024-05-30 13:19] LABS: BASO % 0.6 % (0.0-1.0); EOS # 0.4 10^3/uL (0.0-0.5); HEMATOCRIT 42.4 % (42.0-52.0); HEMOGLOBIN 13.4 g/dl (13.5-17.5); LYMPH # 1.7 10^3/uL (1.5-5.0); LYMPH % 22.8 % (24.0-44.0); MEAN CORPUSCULAR HGB CONC 31.6 g/dl (32.0-36.5); MEAN CORPUSCULAR VOLUME 85.5 fl (80.0-96.0); MONO # 0.8 10^3/uL (0.0-0.8); MONO % 10.5 % (2.0-8.0); NEUTROPHILS # 4.4 10^3/uL (1.5-8.5); NEUTROPHILS % 60.8 % (36.0-66.0); PLATELET COUNT, AUTOMATED 261 10^3/uL (150-450); RED BLOOD COUNT 4.96 10^6/uL (4.30-6.10); WHITE BLOOD COUNT 7.2 10^3/uL (4.0-10.0)
[2024-05-30 13:32] LABS: HEMOGLOBIN A1c 5.8 % (4.0-6.0)
[2024-05-30 13:45] LABS: PSA SCREENING 0.39 NG/ML (< 4.00)
[2024-05-30 13:48] LABS: FERRITIN 81.8 NG/ML (10.5-307.3)
[2024-05-30 13:49] LABS: ALBUMIN 3.8 G/DL (3.2-5.2); ALKALINE PHOSPHATASE 83 U/L (40-129); ALT/SGPT 42 U/L (7.0-40); AST/SGOT 28 U/L (<34); BILIRUBIN,TOTAL 0.6 MG/DL (0.3-1.2); BLOOD UREA NITROGEN 18 MG/DL (9-23); CALCIUM LEVEL 9.8 MG/DL (8.3-10.6); CARBON DIOXIDE LEVEL 29 MMOL/L (20-31); CHLORIDE LEVEL 104 MMOL/L (98-107); CREATININE FOR GFR 1.05 MG/DL (0.70-1.30); GLOMERULAR FILTRATION RATE > 60.0 (>42); GLUCOSE, FASTING 87 MG/DL (74-106); POTASSIUM SERUM 4.8 MMOL/L (3.5-5.1); SODIUM LEVEL 141 MMOL/L (136-145); TOTAL PROTEIN 7.1 G/DL (5.7-8.2)
== END ==
LOC: M LAB 11:11
PROVIDERS: ATTEND Family Medicine
DX: E53.8 Deficiency of other specified B group vitamins (principal); E78.5 Hyperlipidemia, unspecified; R73.01 Impaired fasting glucose; I10 Essential (primary) hypertension; Z12.5 Encounter for screening for malignant neoplasm of prostate; R06.2 Wheezing
CPT/HCPCS: 36415; 80053; 82728; 83036; 83880; 84238; 85025; G0103

== ENCOUNTER → 2024-07-10 | Outpatient (CLI) | payer MEDICARE, MEDICAID | LOC: M RAD 16:20 | PROVIDERS: ATTEND Family Medicine | DX: Z87.891 Personal history of nicotine dependence (principal) ==

== ENCOUNTER 2025-01-23 09:25 | Inpatient (IN) | payer MEDICARE, MEDICAID ==
[~2025-01-23] VITALS: Ht 177.8 cm; Wt 93.8 kg
[~2025-01-23 09:25] MED LIST changes: -EZET10TA21; -EZET10TA21 PO; +EZET10TA57; +EZET10TA57 PO
[2025-01-23 09:52] LABS: VENOUS BASE EXCESS -1.4 (-2.0-2.0); VENOUS HCO3 26.3 MMOL/L (23.0-27.0); VENOUS O2 SATURATION 48.8 % (60.0-80.0); VENOUS PARTIAL PRESSURE CO2 57.3 mmHg (38.0-50.0); VENOUS PARTIAL PRESSURE O2 28.9 mmHg (30.0-50.0); VENOUS PH 7.279 UNITS (7.330-7.430); VENOUS STANDARD HCO3 22.2 MMOL/L; VENOUS TOTAL CO2 28.0 MMOL/L (24.0-28.0)
[2025-01-23 09:58] LABS: BASO # 0.0 10^3/uL (0.0-0.2); BASO % 0.4 % (0.0-1.0); EOS # 0.3 10^3/uL (0.0-0.5); EOS % 2.7 % (0.0-3.0); LYMPH # 1.7 10^3/uL (1.5-5.0); LYMPH % 15.7 % (24.0-44.0); MONO # 1.1 10^3/uL (0.0-0.8); MONO % 9.7 % (2.0-8.0); NEUTROPHILS # 7.6 10^3/uL (1.5-8.5); NEUTROPHILS % 70.8 % (36.0-66.0); PLATELET COUNT, AUTOMATED 428 10^3/uL (150-450)
[2025-01-23] MEDS: ALBUTEROL SULFATE 2.5 MG/0.5 ML INH CONCENTRATE NEB SOLN INH ONE (10:26)
[2025-01-23] MEDS: IPRATROPIUM 0.5 MG/ALBUTEROL 2.5 MG INH SOL UD 3 ML NEB ONE (10:26)
[2025-01-23 10:31] LABS: ALT/SGPT 9.0 U/L (7.0-40); AST/SGOT 14.0 U/L (<34); CALCIUM LEVEL 9.7 MG/DL (8.3-10.6); CARBON DIOXIDE LEVEL 30.0 MMOL/L (20-31); CHLORIDE LEVEL 99.0 MMOL/L (98-107); CK-MB VALUE MASS 2.7 NG/ML (<3.6); CPK CREATINE PHOSPHOKINASE 91.0 U/L (46-171); CREATININE FOR GFR 1.11 MG/DL (0.70-1.30); GLOMERULAR FILTRATION RATE 69.3 (>42); MB/CK RELATIVE INDEX 2.96 (< OR =4); POTASSIUM SERUM 4.5 MMOL/L (3.5-5.1); SODIUM LEVEL 139.0 MMOL/L (136-145)
[2025-01-23 10:32] LABS: THYROXINE (T4) 10.8 UG/DL (4.5-10.9)
[2025-01-23 10:39] LABS: ABG BASE EXCESS -0.7 (-2.0-2.0); ABG HCO3 24.2 MMOL/L (22.0-26.0); ABG O2 SATURATION 99.0 % (95.0-99.0); ABG PARTIAL PRESSURE CO2 41.1 mmHg (35.0-45.0); ABG PARTIAL PRESSURE O2 184.5 mmHg (75.0-100.0); ABG STANDARD HCO3 23.9 MMOL/L. (22.0-26.0); ABG TOTAL CO2 25.5 MMOL/L (23.0-31.0); ABG pH (ARTERIAL) 7.388 UNITS (7.350-7.450)
[2025-01-23] MEDS ORDERED: ISOVUE-370 76% 100 ML VIAL As Ordered ONE (14:10)
[2025-01-23] MEDS ORDERED: B-12100021 PO (16:56)
[2025-01-23] MEDS ORDERED: CHOL125C6 PO (16:56)
[2025-01-23] MEDS ORDERED: HOME MED LIST COMPLETE! XX SCH (17:00)
[2025-01-23 17:55] LABS: CALCIUM LEVEL 9.5 MG/DL (8.3-10.6); CARBON DIOXIDE LEVEL 26.0 MMOL/L (20-31); CHLORIDE LEVEL 102.0 MMOL/L (98-107); CREATININE FOR GFR 0.96 MG/DL (0.70-1.30); GLOMERULAR FILTRATION RATE 82.4 (>42); POTASSIUM SERUM 4.7 MMOL/L (3.5-5.1); SODIUM LEVEL 139.0 MMOL/L (136-145)
[2025-01-23] MEDS: cefTRIAXone SOD 1 GM in DEXTROSE 5% (D5W) ADV/MINI-BAG 50 ML IV SCH (18:13)
[2025-01-23] MEDS: AZITHROMYCIN 250 MG TABLET PO SCH (18:14)
[2025-01-23] MEDS: SYMBICORT 160/4.5MCG INHALER 6GM INH SCH (19:33)
[2025-01-23] MEDS: IPRATROPIUM 0.5 MG/ALBUTEROL 2.5 MG INH SOL UD 3 ML NEB SCH (19:33)
[2025-01-23 22:00] VITALS: BP 163/89; TEMP 97.9; O2SAT 98
[2025-01-23] MEDS: ALBUTEROL 90 MCG/ACT 8 GM HFA INHALER INH PRN (22:15)
[2025-01-23] MEDS ORDERED: ALBUTEROL SULFATE 2.5 MG/0.5 ML INH CONCENTRATE NEB SOLN NEB PRN (22:35)
[2025-01-23 23:43] VITALS: BP 125/66; TEMP 97.7; O2SAT 94
[2025-01-23 23:46] LABS: CALCIUM LEVEL 9.3 MG/DL (8.3-10.6); CARBON DIOXIDE LEVEL 22.0 MMOL/L (20-31); CHLORIDE LEVEL 103.0 MMOL/L (98-107); CREATININE FOR GFR 0.99 MG/DL (0.70-1.30); GLOMERULAR FILTRATION RATE 79.4 (>42); POTASSIUM SERUM 4.4 MMOL/L (3.5-5.1); SODIUM LEVEL 140.0 MMOL/L (136-145)
[2025-01-24 04:44] VITALS: BP 135/71; TEMP 97.5; O2SAT 95
[2025-01-24 06:04] LABS: PLATELET COUNT, AUTOMATED 422 10^3/uL (150-450)
[2025-01-24 06:23] LABS: INR 0.95
[2025-01-24 06:32] LABS: CALCIUM LEVEL 9.8 MG/DL (8.3-10.6); CARBON DIOXIDE LEVEL 25.0 MMOL/L (20-31); CHLORIDE LEVEL 100.0 MMOL/L (98-107); CREATININE FOR GFR 1.11 MG/DL (0.70-1.30); GLOMERULAR FILTRATION RATE 69.3 (>42); POTASSIUM SERUM 4.5 MMOL/L (3.5-5.1); SODIUM LEVEL 139.0 MMOL/L (136-145)
[2025-01-24 07:31] VITALS: BP 150/78; TEMP 98.3; O2SAT 95
[2025-01-24] MEDS ORDERED: TIOTROPIUM BROM 2.5MCG/ACTUATION 4GM INH INH SCH (08:00)
[2025-01-24] MEDS: NICOTINE 21 MG/24 HR 1 EA TRANSDERMAL TD SCH (09:00)
[2025-01-24] MEDS: ENOXAPARIN 40 MG/0.4 ML SYRINGE (J1650 PER 10MG) SC SCH (09:36)
[2025-01-24 11:13] LABS: CALCIUM LEVEL 10.2 MG/DL (8.3-10.6); CARBON DIOXIDE LEVEL 24.0 MMOL/L (20-31); CHLORIDE LEVEL 101.0 MMOL/L (98-107); CREATININE FOR GFR 1.06 MG/DL (0.70-1.30); GLOMERULAR FILTRATION RATE 73.2 (>42); POTASSIUM SERUM 4.7 MMOL/L (3.5-5.1); SODIUM LEVEL 138.0 MMOL/L (136-145)
[2025-01-24 12:13] VITALS: BP 145/68; TEMP 98; O2SAT 96
[2025-01-24 16:00] VITALS: BP 142/80; TEMP 98.3; O2SAT 94
[2025-01-24 17:47] LABS: CALCIUM LEVEL 9.8 MG/DL (8.3-10.6); CARBON DIOXIDE LEVEL 26.0 MMOL/L (20-31); CHLORIDE LEVEL 99.0 MMOL/L (98-107); CREATININE FOR GFR 1.0 MG/DL (0.70-1.30); GLOMERULAR FILTRATION RATE 78.5 (>42); POTASSIUM SERUM 4.6 MMOL/L (3.5-5.1); SODIUM LEVEL 137.0 MMOL/L (136-145)
[2025-01-24 19:35] VITALS: BP 126/58; TEMP 97.7; O2SAT 94
[2025-01-24 23:05] LABS: CALCIUM LEVEL 9.9 MG/DL (8.3-10.6); CARBON DIOXIDE LEVEL 26.0 MMOL/L (20-31); CHLORIDE LEVEL 102.0 MMOL/L (98-107); CREATININE FOR GFR 1.08 MG/DL (0.70-1.30); GLOMERULAR FILTRATION RATE 71.6 (>42); POTASSIUM SERUM 4.9 MMOL/L (3.5-5.1); SODIUM LEVEL 138.0 MMOL/L (136-145)
[2025-01-24 23:54] VITALS: BP 130/76; TEMP 97.9; O2SAT 94
[2025-01-25] VITALS (10 sets, daily range): BP systolic 120–158; BP diastolic 60–90; TEMP 97.3–98.5; O2SAT 93–98
[2025-01-25 06:55] LABS: PLATELET COUNT, AUTOMATED 411 10^3/uL (150-450)
[2025-01-25 07:07] LABS: INR 0.95
[2025-01-25 07:22] LABS: CALCIUM LEVEL 10.0 MG/DL (8.3-10.6); CARBON DIOXIDE LEVEL 27.0 MMOL/L (20-31); CHLORIDE LEVEL 101.0 MMOL/L (98-107); CREATININE FOR GFR 1.03 MG/DL (0.70-1.30); GLOMERULAR FILTRATION RATE 75.8 (>42); POTASSIUM SERUM 5.1 MMOL/L (3.5-5.1); SODIUM LEVEL 139.0 MMOL/L (136-145)
[2025-01-25 11:40] LABS: CALCIUM LEVEL 10.3 MG/DL (8.3-10.6); CARBON DIOXIDE LEVEL 26.0 MMOL/L (20-31); CHLORIDE LEVEL 103.0 MMOL/L (98-107); CREATININE FOR GFR 1.01 MG/DL (0.70-1.30); GLOMERULAR FILTRATION RATE 77.6 (>42); POTASSIUM SERUM 4.9 MMOL/L (3.5-5.1); SODIUM LEVEL 141.0 MMOL/L (136-145)
[2025-01-25] MEDS ORDERED: ONDANSETRON 4MG 2ML VIAL As Ordered ONE (12:50)
[2025-01-25] MEDS ORDERED: dexAMETHasone 4 MG/ML 1 ML VIAL As Ordered ONE (12:50)
[2025-01-25] MEDS ORDERED: LIDOCAINE 2% 100 MG/5 ML SDV (FOR ANES.) As Ordered ONE (12:51)
[2025-01-25] MEDS ORDERED: SUGAMMADEX SODIUM 500 MG/5 ML VIAL As Ordered ONE (12:51)
[2025-01-25] MEDS ORDERED: ROCURONIUM BROMIDE 50MG/5ML VIAL As Ordered ONE (12:51)
[2025-01-25] MEDS ORDERED: MIDAZOLAM INJ 2 MG/2 ML VIAL As Ordered ONE (13:26)
[2025-01-25] MEDS: CETACAINE SPRAY 5 GM As Ordered ONE (13:43)
[2025-01-25] MEDS: EPINEPHrine 1 MG/10 ML SYRINGE 1.5IN As Ordered ONE (13:44)
[2025-01-25] MEDS: THROMBIN 5,000 UNITS VIAL As Ordered ONE (13:45)
[2025-01-25] MEDS ORDERED: HYDROMORPHONE HCL 0.5 MG/0.5 ML SYRINGE IV PRN (13:50)
[2025-01-25] MEDS ORDERED: ONDANSETRON 4MG 2ML VIAL IV PRN (13:50)
[2025-01-25] MEDS ORDERED: E-Z-PAQUE 96% w/w SUSP 176 GM BTL As Ordered ONE (14:26)
[2025-01-25] MEDS ORDERED: VARIBAR NECTAR 40% w/v 240ML SUSP BTL As Ordered ONE (14:27)
[2025-01-25] MEDS ORDERED: BARIUM SULFATE 700 MG TABLET As Ordered ONE (14:27)
[2025-01-25] MEDS ORDERED: VARIBAR PUDDING 40% w/v 230ML TUBE As Ordered ONE (14:27)
[2025-01-25] MEDS: ALBUTEROL SULFATE 2.5 MG/0.5 ML INH CONCENTRATE NEB SOLN INH SCH (20:02)
[2025-01-25] MEDS: SODIUM CHLORIDE HYPERTONIC 3% 4ML NEB SOL INH SCH (20:02)
[2025-01-26] VITALS (25 sets, daily range): BP systolic 131–157; BP diastolic 77–88; TEMP 96.7–98; O2SAT 90–97
[2025-01-26 06:16] LABS: PLATELET COUNT, AUTOMATED 456 10^3/uL (150-450)
[2025-01-26 06:42] LABS: INR 0.95
[2025-01-26 07:54] LABS: CALCIUM LEVEL 9.7 MG/DL (8.3-10.6); CARBON DIOXIDE LEVEL 27.0 MMOL/L (20-31); CHLORIDE LEVEL 101.0 MMOL/L (98-107); CREATININE FOR GFR 0.93 MG/DL (0.70-1.30); GLOMERULAR FILTRATION RATE 85.6 (>42); POTASSIUM SERUM 4.5 MMOL/L (3.5-5.1); SODIUM LEVEL 138.0 MMOL/L (136-145)
[2025-01-27] VITALS (14 sets, daily range): BP systolic 134–143; BP diastolic 69–99; TEMP 97.4–98.8; O2SAT 83–97
[2025-01-27 05:28] LABS: PLATELET COUNT, AUTOMATED 422 10^3/uL (150-450)
[2025-01-27 05:41] LABS: INR 1.0
[2025-01-27 06:02] LABS: CALCIUM LEVEL 9.5 MG/DL (8.3-10.6); CARBON DIOXIDE LEVEL 28.0 MMOL/L (20-31); CHLORIDE LEVEL 100.0 MMOL/L (98-107); CREATININE FOR GFR 0.94 MG/DL (0.70-1.30); GLOMERULAR FILTRATION RATE 84.5 (>42); POTASSIUM SERUM 4.5 MMOL/L (3.5-5.1); SODIUM LEVEL 138.0 MMOL/L (136-145)
[2025-01-27] MEDS: predniSONE 20 MG TAB PO SCH (08:55)
[2025-01-28 06:00] VITALS: BP 133/76; TEMP 98.2; O2SAT 96
[2025-01-28 07:14] LABS: PLATELET COUNT, AUTOMATED 444 10^3/uL (150-450)
[2025-01-28 07:23] LABS: INR 0.95
[2025-01-28 07:42] LABS: CALCIUM LEVEL 9.4 MG/DL (8.3-10.6); CARBON DIOXIDE LEVEL 28.0 MMOL/L (20-31); CHLORIDE LEVEL 101.0 MMOL/L (98-107); CREATININE FOR GFR 1.04 MG/DL (0.70-1.30); GLOMERULAR FILTRATION RATE 74.9 (>42); POTASSIUM SERUM 4.1 MMOL/L (3.5-5.1); SODIUM LEVEL 140.0 MMOL/L (136-145)
[2025-01-28 11:43] VITALS: BP 122/68; TEMP 98.3; O2SAT 96
[2025-01-28 19:52] VITALS: BP 112/64; TEMP 98.7; O2SAT 96
[2025-01-29 03:48] VITALS: BP 122/73; TEMP 98.5; O2SAT 94
[2025-01-29 07:30] LABS: PLATELET COUNT, AUTOMATED 392 10^3/uL (150-450)
[2025-01-29 08:01] LABS: CALCIUM LEVEL 8.9 MG/DL (8.3-10.6); CARBON DIOXIDE LEVEL 28.0 MMOL/L (20-31); CHLORIDE LEVEL 101.0 MMOL/L (98-107); CREATININE FOR GFR 0.95 MG/DL (0.70-1.30); GLOMERULAR FILTRATION RATE 83.5 (>42); POTASSIUM SERUM 4.0 MMOL/L (3.5-5.1); SODIUM LEVEL 140.0 MMOL/L (136-145)
[2025-01-29] MEDS: predniSONE 20 MG TAB PO SCH (08:31)
[2025-01-29 12:14] VITALS: BP 120/73; TEMP 98.7; O2SAT 96
[2025-01-29] MEDS: IPRATROPIUM 0.5 MG/ALBUTEROL 2.5 MG INH SOL UD 3 ML NEB SCH (12:57)
[2025-01-29] MEDS: BUDESONIDE 0.5 MG/2 ML INHALATION SUSPENSION NEB SCH (20:22)
[2025-01-29 20:30] VITALS: BP 125/83; TEMP 98.5; O2SAT 97
[2025-01-30 03:54] VITALS: BP 125/68; TEMP 97.6; O2SAT 95
[2025-01-30 06:42] LABS: PLATELET COUNT, AUTOMATED 422 10^3/uL (150-450)
[2025-01-30 07:13] LABS: CALCIUM LEVEL 9.6 MG/DL (8.3-10.6); CARBON DIOXIDE LEVEL 26.0 MMOL/L (20-31); CHLORIDE LEVEL 98.0 MMOL/L (98-107); CREATININE FOR GFR 0.94 MG/DL (0.70-1.30); GLOMERULAR FILTRATION RATE 84.5 (>42); POTASSIUM SERUM 4.5 MMOL/L (3.5-5.1); SODIUM LEVEL 136.0 MMOL/L (136-145)
[2025-01-30 12:00] VITALS: BP 148/65; TEMP 98.2; O2SAT 98
[2025-01-30 19:52] VITALS: BP 152/73; TEMP 98.2; O2SAT 96
== END 2025-01-30 23:30 | disposition short-term general hospital (02) | DRG 166 ==
LOC: EDBD 09:25 → M ED 09:25 → M ED INP 16:05 → M PCU 21:56 → M MS4PR 01-27 12:18
PROVIDERS: ADMIT Student in an Organized Health Care Education/Training Program; ATTEND Internal Medicine
PROC: 0BJ00ZZ Inspection of Tracheobronchial Tree, Open Approach (ICD-10-PCS; principal; 2025-01-25 14:00)
DX: J44.0 Chronic obstructive pulmonary disease with (acute) lower respiratory infection (principal); J15.5 Pneumonia due to Escherichia coli; K21.9 Gastro-esophageal reflux disease without esophagitis; E78.5 Hyperlipidemia, unspecified; N18.2 Chronic kidney disease, stage 2 (mild); F17.210 Nicotine dependence, cigarettes, uncomplicated; Z92.3 Personal history of irradiation; Z79.899 Other long term (current) drug therapy; Z66 Do not resuscitate; D49.1 Neoplasm of unspecified behavior of respiratory system

== ENCOUNTER → 2025-02-26 | Outpatient (CLI) | payer MEDICARE, MEDICAID ==
[~2025-02-26] MED LIST changes: +B-12100021 PO; +CHOL125C6 PO
[2025-02-26 13:17] LABS: BASO # 0.1 10^3/uL (0.0-0.2); BASO % 0.6 % (0.0-1.0); EOS # 0.8 10^3/uL (0.0-0.5); EOS % 6.8 % (0.0-3.0); LYMPH # 1.6 10^3/uL (1.5-5.0); LYMPH % 13.3 % (24.0-44.0); MONO # 1.2 10^3/uL (0.0-0.8); MONO % 10.1 % (2.0-8.0); NEUTROPHILS # 8.1 10^3/uL (1.5-8.5); NEUTROPHILS % 66.7 % (36.0-66.0); PLATELET COUNT, AUTOMATED 456 10^3/uL (150-450)
[2025-02-26 13:46] LABS: INR 1.0
[2025-02-26 13:48] LABS: ALT/SGPT 11.0 U/L (7.0-40); AST/SGOT 15.0 U/L (<34); CALCIUM LEVEL 9.3 MG/DL (8.3-10.6); CARBON DIOXIDE LEVEL 29.0 MMOL/L (20-31); CHLORIDE LEVEL 99.0 MMOL/L (98-107); CHOLESTEROL LEVEL 133.0 MG/DL (<200); CHOLESTEROL RISK RATIO 3.5 (<5); CREATININE FOR GFR 0.95 MG/DL (0.70-1.30); GLOMERULAR FILTRATION RATE 83.5 (>42); LDL CHOLESTEROL 71.0 MG/DL (<100); NON-HDL-C 95.0 MG/DL; POTASSIUM SERUM 4.0 MMOL/L (3.5-5.1); SODIUM LEVEL 138.0 MMOL/L (136-145); TRIGLYCERIDES LEVEL 120.0 MG/DL (<150)
[2025-02-26 13:54] LABS: TOTAL 25(OH) VITAMIN D 58.5 NG/ML (20.0-100.0)
[2025-02-26 13:55] LABS: FREE T4 1.29 NG/DL (0.89-1.76)
[2025-02-26 14:21] LABS: ESTIMATED AVERAGE GLUCOSE 137.0 MG/DL (60-110)
[2025-02-26 16:26] LABS: PTH INTACT 28.1 PG/ML (18.5-88.0)
== END ==
LOC: M LAB 12:11
PROVIDERS: ATTEND Family Medicine
DX: E53.8 Deficiency of other specified B group vitamins (principal); E78.5 Hyperlipidemia, unspecified; R73.01 Impaired fasting glucose; E55.9 Vitamin D deficiency, unspecified; I10 Essential (primary) hypertension; C34.91 Malignant neoplasm of unspecified part of right bronchus or lung; I87.2 Venous insufficiency (chronic) (peripheral)

== ENCOUNTER → 2025-03-04 | Outpatient (CLI) | payer MEDICARE, MEDICAID ==
[~2025-03-04] MED LIST changes: -BACTDSTA PO; +SULF-8 PO
== END ==
LOC: M PLARAD 08:23
PROVIDERS: ATTEND General Practice
DX: C34.01 Malignant neoplasm of right main bronchus (principal)
CPT/HCPCS: 78815; A9552

== ENCOUNTER → 2025-03-05 | Outpatient (CLI) | payer MEDICARE, MEDICAID | LOC: M ONCR 11:59 | PROVIDERS: ATTEND General Practice | DX: C15.4 Malignant neoplasm of middle third of esophagus (principal); F17.218 Nicotine dependence, cigarettes, with other nicotine-induced disorders; Z79.1 Long term (current) use of non-steroidal anti-inflammatories (NSAID); Z79.899 Other long term (current) drug therapy ==

== ENCOUNTER 2025-03-21 17:09 | Emergency (ER) | payer MEDICARE, MEDICAID ==
[~2025-03-21] VITALS: Ht 165.1 cm; Wt 82.2 kg
[2025-03-21 17:15] VITALS: TEMP 98.7
[2025-03-21 17:49] LABS: BASO # 0.0 10^3/uL (0.0-0.2); BASO % 0.2 % (0.0-1.0); EOS # 0.1 10^3/uL (0.0-0.5); EOS % 0.5 % (0.0-3.0); LYMPH # 1.3 10^3/uL (1.5-5.0); LYMPH % 11.0 % (24.0-44.0); MONO # 1.4 10^3/uL (0.0-0.8); MONO % 11.8 % (2.0-8.0); NEUTROPHILS # 9.0 10^3/uL (1.5-8.5); NEUTROPHILS % 75.7 % (36.0-66.0); PLATELET COUNT, AUTOMATED 463 10^3/uL (150-450)
[2025-03-21 18:27] LABS: CK-MB VALUE MASS 1.9 NG/ML (<3.6)
[2025-03-21 18:29] LABS: ALT/SGPT < 9 U/L (7.0-40); AST/SGOT 18 U/L (<34); CALCIUM LEVEL 9.8 MG/DL (8.3-10.6); CARBON DIOXIDE LEVEL 26 MMOL/L (20-31); CHLORIDE LEVEL 97 MMOL/L (98-107); CREATININE FOR GFR 1.08 MG/DL (0.70-1.30); GLOMERULAR FILTRATION RATE 71.6 (>42); POTASSIUM SERUM 4.5 MMOL/L (3.5-5.1); SODIUM LEVEL 134 MMOL/L (136-145)
[2025-03-21 18:31] LABS: FREE T4 1.44 NG/DL (0.89-1.76)
[2025-03-21 18:33] LABS: CPK CREATINE PHOSPHOKINASE 64 U/L (46-171); MB/CK RELATIVE INDEX 2.96 (< OR =4)
[2025-03-21] MEDS ORDERED: ISOVUE-370 76% 100 ML VIAL As Ordered ONE (18:36)
[2025-03-21 19:38] LABS: CK-MB VALUE MASS 1.6 NG/ML (<3.6)
[2025-03-21 19:40] LABS: CPK CREATINE PHOSPHOKINASE 52.0 U/L (46-171); MB/CK RELATIVE INDEX 3.07 (< OR =4)
[2025-03-21] MEDS ORDERED: LIDO1PAD TOP (19:49)
[2025-03-21] MEDS: ACETAMINOPHEN 325 MG TAB PO ONE (20:13)
[2025-03-21] MEDS: LIDOCAINE 5% PATCH TD ONE (20:13)
[2025-03-21 20:29] VITALS: BP 136/71; O2SAT 96
== END 2025-03-21 20:28 | disposition home or self-care (01) ==
LOC: M ED 17:09
DX: R07.89 Other chest pain (principal); J93.83 Other pneumothorax; I70.0 Atherosclerosis of aorta; K44.9 Diaphragmatic hernia without obstruction or gangrene; D38.1 Neoplasm of uncertain behavior of trachea, bronchus and lung; R59.0 Localized enlarged lymph nodes; I25.84 Coronary atherosclerosis due to calcified coronary lesion; I10 Essential (primary) hypertension; E78.5 Hyperlipidemia, unspecified; J45.909 Unspecified asthma, uncomplicated; J44.9 Chronic obstructive pulmonary disease, unspecified; C34.90 Malignant neoplasm of unspecified part of unspecified bronchus or lung; N18.2 Chronic kidney disease, stage 2 (mild); K76.0 Fatty (change of) liver, not elsewhere classified; Z79.1 Long term (current) use of non-steroidal anti-inflammatories (NSAID); Z79.899 Other long term (current) drug therapy
CPT/HCPCS: 36415; 71045; 71275; 80048; 80076; 82550; 82553; 83690; 83880; 84439; 84443; 84484; 85025; 85730; 93005; 93041; 94760; 99284; Q9967

== ENCOUNTER → 2025-03-25 | Outpatient (CLI) | payer MEDICARE, MEDICAID ==
[~2025-03-25] VITALS: Ht 167.6 cm; Wt 76.4 kg
[~2025-03-25] MED LIST changes: +LIDO1PAD TOP
[2025-03-25 11:25] VITALS: TEMP 98.9
[2025-03-25] MEDS: NS (Normal Saline) 0.9% 1,000 ML IV SCH (13:39)
[2025-03-25] MEDS: ceFAZolin SODIUM 2 GM in DEXTROSE 5% (D5W) ADV/MINI-BAG 50 ML IV ONE (13:39)
[2025-03-25] MEDS: LIDOCAINE 1% MDV 20 ML VIAL SC SCH (14:43)
[2025-03-25] MEDS: MIDAZOLAM INJ 2 MG/2 ML VIAL IV PRN (14:44)
[2025-03-25 15:15] VITALS: BP 138/63; O2SAT 92
== END ==
LOC: M IRPRO 11:09
PROVIDERS: ATTEND Student in an Organized Health Care Education/Training Program
DX: C15.9 Malignant neoplasm of esophagus, unspecified (principal)
CPT/HCPCS: 36561; 76937; J0688; J1642; J2250; J3010

== ENCOUNTER 2025-04-03 08:45 | Outpatient (RCR) | payer MEDICARE, MEDICAID ==
[~2025-04-03 08:45] MED LIST changes: +ALBU2.5V10 INH; +FLUT1BLS8 INH; +VENTAER INH
[2025-04-04] MEDS ORDERED: ISOVUE-370 76% 100 ML VIAL As Ordered ONE (10:25)
== END 2025-04-10 ==
LOC: M ONCR 08:45
PROVIDERS: ATTEND General Practice
DX: Z51.0 Encounter for antineoplastic radiation therapy (principal); C34.01 Malignant neoplasm of right main bronchus
CPT/HCPCS: 77293; 77300; 77301; 77334; 77338; 77386; 77470; Q9967